=== PATIENT | female | born 1945 | race Caucasian/White ===

== ENCOUNTER → 2022-12-07 | Outpatient (CLI) | payer MEDICARE ==
[2022-12-07 11:19] LABS: African American GFR (CKD) 71 (>60 ml/min/1.73 sqM); Blood Urea Nitrogen 11 mg/dL (7-17); Non-African American GFR(CKD) 62 (>60 ml/min/1.73 sqM)
--- NOTE | 2022-12-07 12:23 | CT ---
EXAMINATION: CT UROGRAM WITHOUT AND WITH IV CONTRAST DATE OF EXAMINATION: 12/07/2022. COMPARISON: None available. INDICATION: Gross hematuria. PROCEDURE: Axial CT of the abdomen and pelvis was performed with sagittal and coronal reformatted i mages without and with contrast enhancement. 100 mL of Isovue-[address] dose lo wering techniques were used, to include: automated exposure control, adjustment for patient size, and /or use of iterative reconstruction. FINDINGS: LOWER CHEST : The visualized lung bases are clear. There are no pleural or pericardial effusions. ABDOMEN: Liver and Biliary system: Normal. Adrenal glands: Normal. Kidneys and ureters: There is a 2.2 cm simple cyst in the inferior pole the right kidney. The kidney s and ureters otherwise appear unremarkable. Spleen: Multiple calcified granulomas are seen within the spleen. Pancreas: Normal. Gallbladder: Normal. Lymph nodes, Peritoneum and mesentery: There is no mesenteric or retroperitoneal lymphadenopathy. Gastrointestinal tract: There are no dilated loops of bowel or free intraperitoneal air. . The appe ndix is not clearly seen. Aorta/IVC: There is severe vascular calcification throughout the abdominal aorta without evidence o f aneurysmal dilation or dissection. Vascular calcification continues into the iliac vessels bilatera lly.. IVC normal. Abdominal wall: Normal. PELVIS: Fluid: There is no free fluid in the pelvis. Lymph Nodes: There is no pelvic or inguinal lymphadenopathy.. Urinary bladder: Normal. BONES: The bones are diffusely demineralized. There are no acute osseous abnormalities.. ADDITIONAL SIGNIFICANT FINDINGS: There is a pelvic floor support device within the vagina.. IMPRESSION: 1. . No renal stones or hydronephrosis. 2. No suspicious renal, urinary tract or bladder lesions identified.. 3. No acute findings otherwise seen.
== END | disposition home or self-care (01) ==
LOC: RADCTMAIN 10:16
PROVIDERS: ATTEND Urology
DX: R31.0 Gross hematuria (principal)
CPT/HCPCS: 82565; 84520; 74178; 36415; 74400; Q9967

== ENCOUNTER 2022-12-18 19:46 | Observation (INO) | payer MEDICARE ==
--- NOTE | 2022-12-18 20:28 | ED ---
Female Urogenital HPI - General Source: family Mode of arrival: wheelchair Limitations: no limitations <Lizette Roque - Last Filed: 12/18/22 20:27> - General Source: RN notes reviewed, old records reviewed Mode of arrival: wheelchair Limitations: no limitations - History of Present Illness MD Complaint: dysuria, pelvic pain -: hour(s) Location: suprapubic Severity: moderate Severity scale (1-10): 7 Quality: sharp Consistency: constant Improves with: none Worsens with: none Patient : No Associated Symptoms: abdominal pain, nausea/vomiting, weakness - Related Data Sexually active: No <Jovanny Burgess - Last Filed: 12/22/22 23:30> - General Chief complaint: Urogenital Stated complaint: abd pain Time Seen by Provider: 12/18/22 20:27 - History of Present Illness Initial comments: Patient is a 77-year-old female who presents to the emergency department for urinary retention. (Lizette Roque) This is a 7-year-old here for evaluation. Patient comes in the ER today for evaluation of urgency or need to ER today. Patient feels like she has to urinate has had significant blood in her urine. Patient symptoms are persistent here in the ER. States she cannot clearly if she has seen urologist in the past with no reason for hematuria secondary to what she states is difficult communication (Jovanny Burgess) - Related Data Home Medications Medication Instructions Recorded Confirmed Denosumab [Prolia] 60 mg SQ Q180D 12/19/22 12/21/22 Previous Rx's Medication Instructions Recorded Cefuroxime [Ceftin] 250 mg PO BID 5 Days #10 tab 12/20/22 Allergies Allergy/AdvReac Type Severity Reaction Status Date / Time latex Allergy Rash/Hives Verified 12/21/22 14:22 nickel Allergy Rash/Hives Verified 12/21/22 14:22 green dye Allergy Rash/Hives Uncoded 12/19/22 07:57 Review of Systems ROS Other: All systems not noted in ROS Statement are negative. <Lizette Roque - Last Filed: 12/18/22 20:27> ROS Other: All systems not noted in ROS Statement are negative. <Jovanny Burgess - Last Filed: 12/22/22 23:30> ROS Statement: Those systems with pertinent positive or pertinent negative responses have been documented in the HPI. Past Medical History Past Medical History: Fibromyalgia, Osteoarthritis (OA) History of Any Multi-Drug Resistant Organisms: None Reported Past Psychological History: No Psychological Hx Reported Smoking Status: Current every day smoker Past Alcohol Use History: None Reported Past Drug Use History: None Reported <MyaLizette - Last Filed: 12/18/22 20:27> General Exam Limitations: no limitations <MyaLizette - Last Filed: 12/18/22 20:27> General appearance: alert, in no apparent distress, anxious Head exam: Present: atraumatic, normocephalic, normal inspection Eye exam: Present: normal appearance, PERRL, EOMI. Absent: scleral icterus, conjunctival injection, periorbital swelling ENT exam: Present: normal exam, mucous membranes moist Neck exam: Present: normal inspection. Absent: tenderness, meningismus, lymphadenopathy Respiratory exam: Present: normal lung sounds bilaterally. Absent: respiratory distress, wheezes, rales, rhonchi, stridor Cardiovascular Exam: Present: regular rate, normal rhythm, normal heart sounds. Absent: systolic murmur, diastolic murmur, rubs, gallop, clicks GI/Abdominal exam: Present: soft, tenderness, guarding, normal bowel sounds. Absent: distended, rebound, rigid Extremities exam: Present: normal inspection, full ROM, normal capillary refill. Absent: tenderness, pedal edema, joint swelling, calf tenderness Back exam: Present: normal inspection Neurological exam: Present: alert, oriented X3, CN II-XII intact Psychiatric exam: Present: normal affect, normal mood Skin exam: Present: warm, dry, intact, normal color. Absent: rash <Jovanny Burgess - Last Filed: 12/22/22 23:30> - General Exam Comments Initial Comments: Visual Physical Exam Vital signs reviewed General: Well-appearing, nontoxic, no acute distress. Head: Normocephalic, atraumatic Eyes: PERRLA, EOMI ENT: Airway patent Chest: Nonlabored breathing Skin: No visual rash, normal skin tone Neuro: Alert and oriented 3 Musculoskeletal: No gross abnormalities (Lizette Roque) Course <Jovanny Burgess - Last Filed: 10/06/23 23:30> Vital Signs 12/18/22 12/18/22 12/19/22 20:04 22:55 02:00 Temperature 98.3 F Pulse Rate 97 86 78 Pulse Rate [ Pulse Oximetery ] Respiratory 18 16 16 Rate Blood Pressure 164/82 116/60 108/68 Blood Pressure [Right Arm] O2 Sat by Pulse 96 96 95 Oximetry 12/19/22 12/19/22 12/19/22 06:23 08:00 14:00 Temperature 97.5 F L 97.6 F Pulse Rate 100 Pulse Rate [ 99 100 Pulse Oximetery ] Respiratory 17 16 16 Rate Blood Pressure 120/61 Blood Pressure 111/64 112/59 [Right Arm] O2 Sat by Pulse 92 L 90 L 97 Oximetry - Reevaluation(s) Reevaluation #1: 12/19/22 00:52 Medical records reviewed (Jovanny Burgess) Reevaluation #2: 12/19/22 00:52 Patient's pain is controlled (Jovanny Burgess) Reevaluation #3: 12/19/22 00:52 Patient informed results questions answered (Jovanny Burgess) Reevaluation #4: 12/19/22 00:52 Was pt. sent in by a medical professional or institution (, PA, MARKETING INFORMATION COORDINATOR, urgent ca re, hospital, or snf...) When possible be specific @ -no Did you speak to anyone other than the patient for history (EMS, parent, family, police, friend...)? What history was obtained from this source @ -no Did you review nursing and triage notes (agree or disagree)? Why? @ -agree Are old charts reviewed (outside hosp., previous admission, EMS record, old EKG, old radiological studies, urgent care reports/EKG's, snf records)? Report findings @ -yes Differential Diagnosis (chest pain, altered mental status, abdominal pain women, abdominal pain men, vaginal bleeding, weakness, fever, dyspnea, syncope, headache, dizziness, GI bleed, back pain, seizure, CVA, palpatations, mental health, musculoskeletal)? @ -prior EKG interpreted by me (3pts min.). @ -no X-rays interpreted by me (1pt min.). @ -no CT interpreted by me (1pt min.). @ -yes U/S interpreted by me (1pt. min.). @ -no What testing was considered but not performed or refused? (CT, X-rays, U/S, labs)? Why? @ -none What meds were considered but not given or refused? Why? @ -none Did you discuss the management of the patient with other professionals (professionals i.e. , PA, MARKETING INFORMATION COORDINATOR, lab, RT, psych nurse, high school social science teacher, hi lift operator, teacher, hospital security officer, case monitor)? Give summary @ -no Was smoking cessation discussed for >3mins.? @ -no Was critical care preformed (if so, how long)? @ -no Were there social determinants of health that impacted care today? How? (Homelessness, low income, unemployed, alcoholism, drug addiction, transportation, low edu. Level, literacy, decrease access to med. care, usp, rehab)? @ -none Was there de-escalation of care discussed even if they declined (Discuss DNR or withdrawal of care, Hospice)? DNR status @ -no What co-morbidities impacted this encounter? (DM, HTN, Smoking, COPD, CAD, Cancer, CVA, ARF, Chemo, Hep., AIDS, mental health diagnosis, sleep apnea, morbid obesity)? @ -none Was patient admitted / discharged? Hospital course, mention meds given and route, prescriptions, significant lab abnormalities, going to OR and other pertinent info. @ - 77 female to the emergency department for evaluation of abdominal pain severe. Patient initially thought to have significant urinary retention although here in the ER she has a Barton catheter placed with no significant output. This catheter will be left in the monitor patient's urinary output and sent out. Patient's pain is improved but remains with significant significant hematuria will treat for hemorrhagic cystitis admitted for urology to see Admitted Undiagnosed new problem with uncertain prognosis? @ -no Drug Therapy requiring intensive monitoring for toxicity (Heparin, Nitro, Insu eliecer, Cardizem)? @ -no Were any procedures done? @ -no Diagnosis/symptom? @ -Urinary retention and hematuria Acute, or Chronic, or Acute on Chronic? @ -Acute Uncomplicated (without systemic symptoms) or Complicated (systemic symptoms)? @ -Complicated Side effects of treatment? @ -no Exacerbation, Progression, or Severe Exacerbation? @ -exacerbation Poses a threat to life or bodily function? How? (Chest pain, [place], [place], pneumonia, PE, COPD, DKA, ARF, appy, cholecystitis, CVA, Diverticulitis, Homicidal, Suicidal, threat to staff... and all critical care pts) @ -no (Jovanny Burgess) Reevaluation #5: 12/19/22 00:52 Differential Abdominal Pain Women: Appendicitis, Cholecystitis, diverticulosis, ischemic bowel, pancreatitis, hep atitis, UTI, gastroenteritis, AAA, incarcerated hernia, bowel obstruction, constipation, inflammatory bowel, hepatitis, peptic ulcer disease, splenic infarction, perforated viscus, vulvitis, ovarian torsion, PID, kidney stone, placenta abruption, this is not meant to be an all-inclusive list (Jovanny Burgess) - Consultations Consultation #1: (Eamon Schmid who agrees to admit the patient (Jovanny Burgess) Consultation #2: Spoke with Dr. Justice who also agrees to admit the patient (Jovanny Burgess) Medical Decision Making <Lizette Roque - Last Filed: 12/18/22 20:27> - Lab Data Result diagrams: 12/20/22 05:21 12/20/22 05:21 - Radiology Data Radiology results: pending (CT of abdomen and pelvis) <Jovanny Burgess - Last Filed: 12/22/22 23:30> - Medical Decision Making I performed the QuickNote portion of this chart - Lizette Roque PA-C (Lizette oRque) 77 female to the emergency department for evaluation of abdominal pain severe. Patient initially thought to have significant urinary retention although here in the ER she has a Barton catheter placed with no significant output. This catheter will be left in the monitor patient's urinary output and sent out. Patient's pain is improved but remains with significant significant hematuria will treat for hemorrhagic cystitis admitted for urology to see (Jovanny Burgess) - Lab Data Lab Results 12/18/22 12/18/22 12/18/22 Range/Units 21:00 21:00 21:00 WBC 9.3 (3.8-10.6) k/uL RBC 2.71 L (3.80-5.40) m/uL Hgb 8.4 L (11.4-16.0) gm/dL Hct 26.7 L (34.0-46.0) % MCV 98.5 (80.0-100.0) fL MCH 31.1 (25.0-35.0) pg MCHC 31.5 (31.0-37.0) g/dL RDW 14.5 (11.5-15.5) % Plt Count 338 (150-450) k/uL MPV 8.5 Neutrophils % 78 % Lymphocytes % 13 % Monocytes % 6 % Eosinophils % 1 % Basophils % 0 % Neutrophils # 7.3 (1.3-7.7) k/uL Lymphocytes # 1.2 (1.0-4.8) k/uL Monocytes # 0.6 (0-1.0) k/uL Eosinophils # 0.1 (0-0.7) k/uL Basophils # 0.0 (0-0.2) k/uL Hypochromasia Moderate Sodium 134 L (137-145) mmol/L Potassium 3.9 (3.5-5.1) mmol/L Chloride 99 (98-107) mmol/L Carbon Dioxide 24 (22-30) mmol/L Anion Gap 11 mmol/L BUN 17 (7-17) mg/dL Creatinine 1.13 H (0.52-1.04) mg/dL Est GFR (CKD-EPI)AfAm 55 (>60 ml/min/1.73 sqM) Est GFR (CKD-EPI)NonAf 48 (>60 ml/min/1.73 sqM) Glucose 109 H (74-99) mg/dL Plasma Lactic Acid Elvin (0.7-2.0) mmol/L Calcium 9.1 (8.4-10.2) mg/dL Total Bilirubin 0.4 (0.2-1.3) mg/dL AST 29 (14-36) U/L ALT 17 (4-34) U/L Alkaline Phosphatase 77 (38-126) U/L Total Protein 7.2 (6.3-8.2) g/dL Albumin 3.8 (3.5-5.0) g/dL Amylase (30-110) U/L Lipase (23-300) U/L Urine Color Light Red Urine Appearance Cloudy H (Clear) Urine pH 5.0 (5.0-8.0) Ur Specific [place] 1.019 (1.001-1.035) Urine Protein 1+ H (Negative) Urine Glucose (UA) Negative (Negative) Urine Ketones Negative (Negative) Urine Blood Large H (Negative) Urine Nitrite Negative (Negative) Urine Bilirubin Negative (Negative) Urine Urobilinogen <2.0 (<2.0) mg/dL Ur Leukocyte Esterase Small H (Negative) Urine RBC >182 H (0-5) /hpf Urine WBC 17 H (0-5) /hpf Ur Squamous Epith Cells 1 (0-4) /hpf Urine Bacteria Rare H (None) /hpf Urine Mucus (None) /hpf Urine Yeast (Budding) Many H (None) /hpf 12/18/22 12/18/22 12/18/22 Range/Units 21:10 21:53 22:47 WBC (3.8-10.6) k/uL RBC (3.80-5.40) m/uL Hgb (11.4-16.0) gm/dL Hct (34.0-46.0) % MCV (80.0-100.0) fL MCH (25.0-35.0) pg MCHC (31.0-37.0) g/dL RDW (11.5-15.5) % Plt Count (150-450) k/uL MPV Neutrophils % % Lymphocytes % % Monocytes % % Eosinophils % % Basophils % % Neutrophils # (1.3-7.7) k/uL Lymphocytes # (1.0-4.8) k/uL Monocytes # (0-1.0) k/uL Eosinophils # (0-0.7) k/uL Basophils # (0-0.2) k/uL Hypochromasia Sodium 133 L (137-145) mmol/L Potassium 4.4 (3.5-5.1) mmol/L Chloride 100 (98-107) mmol/L Carbon Dioxide 25 (22-30) mmol/L Anion Gap 8 mmol/L BUN 19 H (7-17) mg/dL Creatinine 1.14 H (0.52-1.04) mg/dL Est GFR (CKD-EPI)AfAm 55 (>60 ml/min/1.73 sqM) Est GFR (CKD-EPI)NonAf 47 (>60 ml/min/1.73 sqM) Glucose 109 H (74-99) mg/dL Plasma Lactic Acid Elvin 0.9 (0.7-2.0) mmol/L Calcium 8.8 (8.4-10.2) mg/dL Total Bilirubin 0.4 (0.2-1.3) mg/dL AST 29 (14-36) U/L ALT 16 (4-34) U/L Alkaline Phosphatase 68 (38-126) U/L Total Protein 6.6 (6.3-8.2) g/dL Albumin 3.6 (3.5-5.0) g/dL Amylase 46 (30-110) U/L Lipase 111 (23-300) U/L Urine Color Red Urine Appearance Cloudy H (Clear) Urine pH 5.5 (5.0-8.0) Ur Specific [place] 1.020 (1.001-1.035) Urine Protein 1+ H (Negative) Urine Glucose (UA) Negative (Negative) Urine Ketones Negative (Negative) Urine Blood Large H (Negative) Urine Nitrite Negative (Negative) Urine Bilirubin Negative (Negative) Urine Urobilinogen <2.0 (<2.0) mg/dL Ur Leukocyte Esterase Small H (Negative) Urine RBC >182 H (0-5) /hpf Urine WBC 7 H (0-5) /hpf Ur Squamous Epith Cells 11 H (0-4) /hpf Urine Bacteria Rare H (None) /hpf Urine Mucus Occasional H (None) /hpf Urine Yeast (Budding) Many H (None) /hpf Disposition <Lizette Roque - Last Filed: 12/18/22 20:27> Is patient prescribed a controlled substance at d/c from ED?: No Time of Disposition: 00:50 <Jovanny Burgess - Last Filed: 12/22/22 23:30> Clinical Impression: Pelvic pain, Hematuria, Urinary tract infection Disposition: ADMITTED IP TO THIS HOSP Condition: Stable
[2022-12-18 21:26] LABS: ALT 17 U/L (4-34); AST 29 U/L (14-36); African American GFR (CKD) 55 (>60 ml/min/1.73 sqM); Albumin 3.8 g/dL (3.5-5.0); Alkaline Phosphatase 77 U/L (38-126); Anion Gap 11 mmol/L; Blood Urea Nitrogen 17 mg/dL (7-17); Calcium 9.1 mg/dL (8.4-10.2); Carbon Dioxide 24 mmol/L (22-30); Chloride 99 mmol/L (98-107); Glucose 109 mg/dL (74-99); Non-African American GFR(CKD) 48 (>60 ml/min/1.73 sqM); Potassium 3.9 mmol/L (3.5-5.1); Sodium 134 mmol/L (137-145); Total Bilirubin 0.4 mg/dL (0.2-1.3); Total Protein 7.2 g/dL (6.3-8.2)
[2022-12-18 21:39] LABS: Appearance,Urine Cloudy (Clear); Bacteria,Urine Rare /hpf; Bilirubin,Urine Negative (Negative); Blood,Urine Large (Negative); Budding Yeast,Urine Many /hpf; Color,Urine Light Red; Glucose,Urine (UA) Negative (Negative); Ketones,Urine Negative (Negative); Leukocyte Esterase,Urine Small (Negative); Nitrite,Urine Negative (Negative); Protein,Urine 1+ (Negative); RBC,Urine >182 /hpf (0-5); Specific Gravity,Urine 1.019 (1.001-1.035); Squamous Epithelial Cell,Urine 1 /hpf (0-4); Urobilinogen,Urine <2.0 mg/dL (<2.0); WBC,Urine 17 /hpf (0-5)
[2022-12-18] MEDS ORDERED: SODIUM CHLORIDE 0.9% 1,000 ML IV STA (21:53)
[2022-12-18] MEDS ORDERED: ONDANSETRON 4 MG/2 ML VIAL IVP STA (21:53)
[2022-12-18] MEDS ORDERED: HYDROmorphone 0.5 MG/0.5 ML SYRINGE IVP STA (21:54)
[2022-12-18 22:00] LABS: Basophils % (A) 0 %; Eosinophils # (A) 0.1 k/uL (0-0.7); Eosinophils % (A) 1 %; HCT 26.7 % (34.0-46.0); HGB 8.4 gm/dL (11.4-16.0); Hypochromasia Moderate; Lymphocytes # (A) 1.2 k/uL (1.0-4.8); Lymphocytes % (A) 13 %; MCH 31.1 pg (25.0-35.0); MCHC 31.5 g/dL (31.0-37.0); MCV 98.5 fL (80.0-100.0); Mean Platelet Volume 8.5; Monocytes # (A) 0.6 k/uL (0-1.0); Monocytes % (A) 6 %; Neutrophils # (A) 7.3 k/uL (1.3-7.7); Neutrophils % (A) 78 %; Platelet Count 338 k/uL (150-450); RBC 2.71 m/uL (3.80-5.40); RDW 14.5 % (11.5-15.5); WBC 9.3 k/uL (3.8-10.6)
[2022-12-18 22:30] LABS: ALT 16 U/L (4-34); AST 29 U/L (14-36); African American GFR (CKD) 55 (>60 ml/min/1.73 sqM); Albumin 3.6 g/dL (3.5-5.0); Alkaline Phosphatase 68 U/L (38-126); Amylase 46 U/L (30-110); Anion Gap 8 mmol/L; Blood Urea Nitrogen 19 mg/dL (7-17); Calcium 8.8 mg/dL (8.4-10.2); Carbon Dioxide 25 mmol/L (22-30); Chloride 100 mmol/L (98-107); Glucose 109 mg/dL (74-99); Lipase 111 U/L (23-300); Non-African American GFR(CKD) 47 (>60 ml/min/1.73 sqM); Potassium 4.4 mmol/L (3.5-5.1); Sodium 133 mmol/L (137-145); Total Bilirubin 0.4 mg/dL (0.2-1.3); Total Protein 6.6 g/dL (6.3-8.2)
[2022-12-18 23:48] LABS: Appearance,Urine Cloudy (Clear); Bacteria,Urine Rare /hpf; Bilirubin,Urine Negative (Negative); Blood,Urine Large (Negative); Budding Yeast,Urine Many /hpf; Color,Urine Red; Glucose,Urine (UA) Negative (Negative); Ketones,Urine Negative (Negative); Leukocyte Esterase,Urine Small (Negative); Mucus,Urine Occasional /hpf; Nitrite,Urine Negative (Negative); PH, Urine 5.5 (5.0-8.0); Protein,Urine 1+ (Negative); RBC,Urine >182 /hpf (0-5); Squamous Epithelial Cell,Urine 11 /hpf (0-4); Urobilinogen,Urine <2.0 mg/dL (<2.0); WBC,Urine 7 /hpf (0-5)
[2022-12-19] MEDS ORDERED: NALOXONE 0.4 MG/ML 1 ML VIAL IV PRN (00:48)
[2022-12-19] MEDS ORDERED: ONDANSETRON 4 MG/2 ML VIAL IVP PRN (00:48)
[2022-12-19] MEDS ORDERED: SODIUM CHLORIDE 0.9% 1,000 ML IV STA ×2 (00:50)
--- NOTE | 2022-12-19 01:03 | CT ---
EXAM: CT Abdomen and Pelvis With Intravenous Contrast CLINICAL HISTORY: CT Reason: abdominal pain TECHNIQUE: Axial computed tomography images of the abdomen and pelvis with intravenous contrast. CTDI is 9.8 mGy and DLP is 277.80 mGy-cm. This CT exam was performed using one or more of the following dose reduction techniques: automated exposure control, adjustment of the mA and/or kV according to patient size, and/or use of iterative reconstruction technique. COMPARISON: December 07, 2022 FINDINGS: Lung bases: Unremarkable. No mass. No consolidation. ABDOMEN: Liver: Unremarkable. No mass. Gallbladder and bile ducts: Unremarkable. No calcified stones. No ductal dilation. Pancreas: Unremarkable. No mass. No ductal dilation. Spleen: Unremarkable. No splenomegaly. Adrenals: Unremarkable. No mass. Kidneys and ureters: Mild left hydronephrosis. No ureterolithiasis is seen. Stomach and bowel: Bowel loops are nondilated. No acute inflammatory changes are seen involving the bowel. No mucosal thickening. PELVIS: Appendix: No findings to suggest acute appendicitis. Bladder: The urinary bladder is decompressed by a Barton catheter but otherwise unremarkable. Reproductive: There is a pessary in the vagina. ABDOMEN and PELVIS: Intraperitoneal space: Unremarkable. No free air. No significant fluid collection. Bones/joints: Diffuse osteopenia with compression fractures involve visible thoracic and lumbar spinal levels which appear chronic. No acute fracture or subluxation is seen. Soft tissues: Unremarkable. Vasculature: The abdominal aorta is severely calcified. The infrarenal aorta is ectatic measuring 2.9 cm. No abdominal aortic aneurysm. Lymph nodes: Unremarkable. No enlarged lymph nodes. IMPRESSION: 1. Mild left hydronephrosis. No ureterolithiasis is seen. This is slightly greater than previous. Consider distal ureteral stricture or compression of the distal ureter at the ureterovesicular junction by the pessary. 2. Bowel loops are nondilated. No acute inflammatory changes are seen involving the bowel.
[2022-12-19] MEDS: MORPHINE SULFATE 4 MG/ML SYRINGE IV PRN ×2 (06:21→18:33)
--- NOTE | 2022-12-19 09:27 | P.GSCN ---
History of Present Illness Consult date: 12/19/22 History of present illness: 77 yo female admitted via the er because of pelvic pain, hematuria. SHe has been seen by Dr preston recently. SHe had a ct urogram 12/07 for hematuria that was read as normal but Dr preston thought there was a filling defect in the distal left ureter. He is planning on a left ureteroscopy with biopsies.. When she came in last nite it was thought she might be in retention but she wasn't. She had a ct scan without contrast that showed mild hydronephrosis on the left. No definite stones were seen. Her urine showed may rbc, few wbc and rare bacteria. She feels better this am. Review of Systems All systems: negative - Constitutional Denies fever, Denies weight loss - EENT Eyes: denies blurred vision Ears, nose, mouth and throat: Denies dysphagia - Cardiovascular Denies chest pain, Denies shortness of breath - Respiratory Denies cough, Denies 7 - Gastrointestinal Reports as per HPI - Genitourinary Genitourinary: Denies dysuria, Denies hematuria - Integumentary Denies rash, Denies unusual bruising - Neurological Denies headaches, Denies syncope - Hematologic/Lymphatic Denies easy bleeding, Denies easy bruising Past Medical History Past Medical History: Fibromyalgia, Osteoarthritis (OA) History of Any Multi-Drug Resistant Organisms: None Reported Past Psychological History: No Psychological Hx Reported Smoking Status: Current every day smoker Past Alcohol Use History: None Reported Past Drug Use History: None Reported Medications and Allergies Home Medications Medication Instructions Recorded Confirmed Type Denosumab [Prolia] 60 mg SQ Q180D 12/19/22 12/19/22 History Allergies Allergy/AdvReac Type Severity Reaction Status Date / Time latex Allergy Rash/Hives Verified 12/19/22 07:57 nickel Allergy Rash/Hives Verified 12/19/22 07:57 green dye Allergy Rash/Hives Uncoded 12/19/22 07:57 Surgical - Exam Vital Signs Temp Pulse Resp BP Pulse Ox 98.3 F 97 18 164/82 96 12/18/22 20:04 12/18/22 20:04 12/18/22 20:04 12/18/22 20:04 12/18/22 20:04 - General well developed, well nourished, no distress - Eyes normal ocular movement, no icteric - ENT no hearing loss, no congestion - Neck no masses, trachea midline - Respiratory normal respiratory effort, clear to auscultation - Abdomen Abdomen: soft, non tender, no guarding, no rigid, no rebound - Integumentary no rash, no abnormal pigmentation - Neurologic no disoriented, no combative - Psychiatric oriented to time, oriented to person, oriented to place, speech is normal, mem ory intact Results - Labs 12/18/22 21:00 12/18/22 21:53 Abnormal Lab Results - Last 24 Hours (Table) 12/18/22 12/18/22 12/18/22 Range/Units 21:00 21:00 21:00 RBC 2.71 L (3.80-5.40) m/uL Hgb 8.4 L (11.4-16.0) gm/dL Hct 26.7 L (34.0-46.0) % Sodium 134 L (137-145) mmol/L BUN (7-17) mg/dL Creatinine 1.13 H (0.52-1.04) mg/dL Glucose 109 H (74-99) mg/dL Urine Appearance Cloudy H (Clear) Urine Protein 1+ H (Negative) Urine Blood Large H (Negative) Ur Leukocyte Esterase Small H (Negative) Urine RBC >182 H (0-5) /hpf Urine WBC 17 H (0-5) /hpf Ur Squamous Epith Cells (0-4) /hpf Urine Bacteria Rare H (None) /hpf Urine Mucus (None) /hpf Urine Yeast (Budding) Many H (None) /hpf 12/18/22 12/18/22 Range/Units 21:53 22:47 RBC (3.80-5.40) m/uL Hgb (11.4-16.0) gm/dL Hct (34.0-46.0) % Sodium 133 L (137-145) mmol/L BUN 19 H (7-17) mg/dL Creatinine 1.14 H (0.52-1.04) mg/dL Glucose 109 H (74-99) mg/dL Urine Appearance Cloudy H (Clear) Urine Protein 1+ H (Negative) Urine Blood Large H (Negative) Ur Leukocyte Esterase Small H (Negative) Urine RBC >182 H (0-5) /hpf Urine WBC 7 H (0-5) /hpf Ur Squamous Epith Cells 11 H (0-4) /hpf Urine Bacteria Rare H (None) /hpf Urine Mucus Occasional H (None) /hpf Urine Yeast (Budding) Many H (None) /hpf Diabetes panel 12/18/22 12/18/22 Range/Units 21:00 21:53 Sodium 134 L 133 L (137-145) mmol/L Potassium 3.9 4.4 (3.5-5.1) mmol/L Chloride 99 100 (98-107) mmol/L Carbon Dioxide 24 25 (22-30) mmol/L BUN 17 19 H (7-17) mg/dL Creatinine 1.13 H 1.14 H (0.52-1.04) mg/dL Glucose 109 H 109 H (74-99) mg/dL Calcium 9.1 8.8 (8.4-10.2) mg/dL AST 29 29 (14-36) U/L ALT 17 16 (4-34) U/L Alkaline Phosphatase 77 68 (38-126) U/L Total Protein 7.2 6.6 (6.3-8.2) g/dL Albumin 3.8 3.6 (3.5-5.0) g/dL Calcium panel 12/18/22 12/18/22 Range/Units 21:00 21:53 Calcium 9.1 8.8 (8.4-10.2) mg/dL Albumin 3.8 3.6 (3.5-5.0) g/dL Pituitary panel 12/18/22 12/18/22 Range/Units 21:00 21:53 Sodium 134 L 133 L (137-145) mmol/L Potassium 3.9 4.4 (3.5-5.1) mmol/L Chloride 99 100 (98-107) mmol/L Carbon Dioxide 24 25 (22-30) mmol/L BUN 17 19 H (7-17) mg/dL Creatinine 1.13 H 1.14 H (0.52-1.04) mg/dL Glucose 109 H 109 H (74-99) mg/dL Calcium 9.1 8.8 (8.4-10.2) mg/dL Adrenal panel 12/18/22 12/18/22 Range/Units 21:00 21:53 Sodium 134 L 133 L (137-145) mmol/L Potassium 3.9 4.4 (3.5-5.1) mmol/L Chloride 99 100 (98-107) mmol/L Carbon Dioxide 24 25 (22-30) mmol/L BUN 17 19 H (7-17) mg/dL Creatinine 1.13 H 1.14 H (0.52-1.04) mg/dL Glucose 109 H 109 H (74-99) mg/dL Calcium 9.1 8.8 (8.4-10.2) mg/dL Total Bilirubin 0.4 0.4 (0.2-1.3) mg/dL AST 29 29 (14-36) U/L ALT 17 16 (4-34) U/L Alkaline Phosphatase 77 68 (38-126) U/L Total Protein 7.2 6.6 (6.3-8.2) g/dL Albumin 3.8 3.6 (3.5-5.0) g/dL - Imaging CT scan - abdomen: report reviewed, image reviewed CT scan - pelvis: report reviewed, image reviewed Assessment and Plan Assessment: Impression: Persistent gross hematuria with pelvic pain. Abnormal ct scan left ureter Plan: From a urological standpoint the patient may go home. Dr preston will contact her for the above mentioned surgical evaluation of the abnormal left ureter and hematuria.
--- NOTE | 2022-12-19 09:28 | P.HPIM ---
History of Present Illness H&P Date: 12/19/22 Chief Complaint: Dysuria This is a 77-year-old female who presented to the emergency room with complaints of urgency and dysuria and pelvic pain. She reports she has been having difficulty urinating and significant blood in her urine. She has a past medical history of fibromyalgia and arthritis. She is seen this morning laying on stretcher in emergency room. Barton catheter in place, dark urine present. UA showed a small amount of leukocytes. Urology has been consulted. Review of Systems Constitutional: Denies chills, Denies fever Cardiovascular: Denies chest pain, Denies dyspnea on exertion Gastrointestinal: Reports abdominal pain, Denies nausea, Denies vomiting Genitourinary: Reports dysuria, Reports pelvic pain, Reports urgency Musculoskeletal: Denies arm numbness/tingling, Denies leg numbness/tingling Neurological: Denies headaches, Denies weakness Past Medical History Past Medical History: Fibromyalgia, Osteoarthritis (OA) History of Any Multi-Drug Resistant Organisms: None Reported Past Psychological History: No Psychological Hx Reported Smoking Status: Current every day smoker Past Alcohol Use History: None Reported Past Drug Use History: None Reported Medications and Allergies Home Medications Medication Instructions Recorded Confirmed Type Denosumab [Prolia] 60 mg SQ Q180D 12/19/22 12/19/22 History Allergies Allergy/AdvReac Type Severity Reaction Status Date / Time latex Allergy Rash/Hives Verified 12/19/22 07:57 nickel Allergy Rash/Hives Verified 12/19/22 07:57 green dye Allergy Rash/Hives Uncoded 12/19/22 07:57 Physical Exam Vitals: Vital Signs Temp Pulse Resp BP Pulse Ox 12/19/22 06:23 100 17 120/61 92 L 12/19/22 02:00 78 16 108/68 95 12/18/22 22:55 86 16 116/60 96 12/18/22 20:04 98.3 F 97 18 164/82 96 Intake and Output 12/18/22 12/19/22 12/19/22 22:59 06:59 14:59 Other: Weight 42.184 kg - Constitutional General appearance: cooperative, no acute distress - EENT Eyes: PERRLA - Neck Neck: no lymphadenopathy, normal ROM, no rigidity - Respiratory Respiratory: bilateral: CTA - Cardiovascular Rhythm: regular Heart sounds: normal: S1, S2 - Gastrointestinal General gastrointestinal: soft, no tenderness - Integumentary Integumentary: normal, normal turgor - Psychiatric Psychiatric: A&O x's 3, appropriate affect, intact judgment & insight Results CBC & Chem 7: 12/18/22 21:00 12/18/22 21:53 Labs: Abnormal Lab Results - Last 24 Hours (Table) 12/18/22 12/18/22 12/18/22 Range/Units 21:00 21:00 21:00 RBC 2.71 L (3.80-5.40) m/uL Hgb 8.4 L (11.4-16.0) gm/dL Hct 26.7 L (34.0-46.0) % Sodium 134 L (137-145) mmol/L BUN (7-17) mg/dL Creatinine 1.13 H (0.52-1.04) mg/dL Glucose 109 H (74-99) mg/dL Urine Appearance Cloudy H (Clear) Urine Protein 1+ H (Negative) Urine Blood Large H (Negative) Ur Leukocyte Esterase Small H (Negative) Urine RBC >182 H (0-5) /hpf Urine WBC 17 H (0-5) /hpf Ur Squamous Epith Cells (0-4) /hpf Urine Bacteria Rare H (None) /hpf Urine Mucus (None) /hpf Urine Yeast (Budding) Many H (None) /hpf 12/18/22 12/18/22 Range/Units 21:53 22:47 RBC (3.80-5.40) m/uL Hgb (11.4-16.0) gm/dL Hct (34.0-46.0) % Sodium 133 L (137-145) mmol/L BUN 19 H (7-17) mg/dL Creatinine 1.14 H (0.52-1.04) mg/dL Glucose 109 H (74-99) mg/dL Urine Appearance Cloudy H (Clear) Urine Protein 1+ H (Negative) Urine Blood Large H (Negative) Ur Leukocyte Esterase Small H (Negative) Urine RBC >182 H (0-5) /hpf Urine WBC 7 H (0-5) /hpf Ur Squamous Epith Cells 11 H (0-4) /hpf Urine Bacteria Rare H (None) /hpf Urine Mucus Occasional H (None) /hpf Urine Yeast (Budding) Many H (None) /hpf Assessment and Plan (1) Hematuria Current Visit: Yes Status: Acute Code(s): R31.9 - HEMATURIA, UNSPECIFIED SNOMED Code(s): 66310364 (2) Pelvic pain Current Visit: Yes Status: Acute Code(s): R10.2 - PELVIC AND PERINEAL PAIN SNOMED Code(s): 21191234 (3) Urinary tract infection Current Visit: Yes Status: Acute Code(s): N39.0 - URINARY TRACT INFECTION, SITE NOT SPECIFIED SNOMED Code(s): 01789129 Plan: Start 1 g of Rocephin daily Continue hydration with IV fluids. Continue Barton catheter today Check CBC and CMP in the morning Appreciate urology input Patient seen and evaluated by nurse practitioner, physician in agreement with plan
[2022-12-20] MEDS: MORPHINE SULFATE 4 MG/ML SYRINGE IV PRN (00:22)
[2022-12-20 07:49] VITALS: BP 167/82; PULSE 114; RESP 18; TEMP 98.5
--- NOTE | 2022-12-20 08:42 | P.DS ---
Providers Date of admission: 12/19/22 00:50 Attending physician: Jermaine Schmid Consults: 12/19/22 00:48 Consult Physician Routine Consulting Provider: Khanh Johnson Consult Reason/Comments: known Do you want consulting provider notified?: Yes Primary care physician: Jermaine Schmid Hospital Course: The patient was admitted for urinary retention. Urology was consulted after seem computed tomography scan and was cleared for discharge. The patient was kept overnight related to hydration status. The patient had better urinary output and the Barton will be is continued and she'll follow up with urology. Sh e'll follow-up with me in about a week as necessary. UTIs also noted. She is placed on Ceftin for discharge. Patient is tolerating diet minimal pain and will be discharged in stable condition. Patient Condition at Discharge: Stable Plan - Discharge Summary New Discharge Prescriptions: New Cefuroxime [Ceftin] 250 mg PO BID 5 Days #10 tab Continue Denosumab [Prolia] 60 mg SQ Q180D Discharge Medication List Denosumab [Prolia] 60 mg SQ Q180D 12/19/22 [History] Cefuroxime [Ceftin] 250 mg PO BID 5 Days #10 tab 12/20/22 [Rx] Follow up Appointment(s)/Referral(s): Max Ribera MD [STAFF PHYSICIAN] - 1 Week Jermaine Schmid MD [Primary Care Provider] - 3 Days Discharge Disposition: HOME SELF-CARE
[2022-12-20 08:52] LABS: Basophils # (A) 0.03 X 10*3/uL (0.00-0.10); Basophils % (A) 0.2 %; Eosinophils # (A) 0.01 X 10*3/uL (0.04-0.35); Eosinophils % (A) 0.1 %; HCT 24.4 % (37.2-46.3); HGB 7.3 d/dL (12.0-15.0); Lymphocytes # (A) 1.25 X 10*3/uL (0.90-5.00); Lymphocytes % (A) 10.3 %; MCH 30.5 pg (27.0-32.0); MCHC 29.9 d/dL (32.0-37.0); MCV 102.1 FL (80.0-97.0); Mean Platelet Volume 9.1 FL (9.5-12.2); Monocytes # (A) 0.89 X 10*3/uL (0.20-1.00); Monocytes % (A) 7.3 %; NRBC Per 100 WBC 0 X 10*3/uL (0.00-0.01); Neutrophils # (A) 9.87 X 10*3/uL (1.80-7.70); Neutrophils % (A) 81.4 %; Platelet Count 253 X 10*3/uL (140-440); RBC 2.39 X 10*6/uL (4.10-5.20); WBC 12.14 X 10*3/uL (4.50-10.00)
[2022-12-20 09:00] LABS: ALT 11 U/L (8-44); AST 16 U/L (13-35); Albumin 3.1 d/dL (3.8-4.9); Albumin/Globulin Ratio 1.35 Ratio (1.60-3.17); Alkaline Phosphatase 58 U/L (41-126); BUN/Creat Ratio 10.47 Ratio (12.00-20.00); Blood Urea Nitrogen 15.7 mg/dL (9.0-27.0); Calcium 8.8 mg/dL (8.7-10.3); Chloride 101 mmol/L (96-109); Globulin 2.3 d/dL (1.6-3.3); Glucose 84 mg/dL (70-110); Phosphorus 4.4 mg/dL (2.4-5.1); Potassium 4.6 mmol/L (3.5-5.5); Sodium 135 mmol/L (135-145); Total Bilirubin <0.2 mg/dL (0.3-1.2); Total Protein 5.4 d/dL (6.2-8.2)
--- NOTE | 2022-12-20 10:54 | P.PN ---
Progress Note - Text Progress Note Date: 12/20/22 The patient is in the hospital abdominal pain and hematuria. She has some mild left-sided hydronephrosis. She has been seen by . Case was discussed with him yesterday. He plans on doing left ureteroscopy and biopsies as an outpatient in the near future to clarify cause of her hematuria
[2022-12-20 13:10] VITALS: BMI 18.1
== END 2022-12-20 13:35 | disposition home or self-care (01) ==
LOC: EC 19:46 → 4SSUR 12-19 00:50 → 5NMEDONC 12-19 00:59
PROVIDERS: ADMIT Family Medicine; ATTEND Family Medicine
DX: N13.6 Pyonephrosis (principal); R33.9 Retention of urine, unspecified; M79.7 Fibromyalgia; M19.90 Unspecified osteoarthritis, unspecified site; F17.200 Nicotine dependence, unspecified, uncomplicated; Z79.899 Other long term (current) drug therapy; Z91.040 Latex allergy status; Z91.048 Other nonmedicinal substance allergy status
CPT/HCPCS: 96376 ×2; 96361 ×2; 96366 ×2; 96365; 96375 ×2; 99285; 36415; 80053 ×2; 82150; 83605; 83690; 83735; 84100; 85025 ×2; 81001; 87086; 74177; G0378 ×2; J2270 ×2; J2405; J0696 ×3; J1170; Q9967

== ENCOUNTER 2022-12-26 07:48 | Day surgery (SDC) | payer MEDICARE ==
[~2022-12-26 07:48] MED LIST: DEXAMETHASONE SOD PHOSPHATE 4 MG/ML 1 ML VIAL IV ONE; HYDROmorphone 0.5 MG/0.5 ML SYRINGE IVP PRN; LACTATED RINGERS 1,000 ML IV SCH; LIDOCAINE 1% (10MG/ML) FOR IV START INTRADERMA PRN; MIDAZOLAM 2 MG/2 ML VIAL IV PRN; ONDANSETRON 4 MG/2 ML VIAL IVP ONE
--- NOTE | 2022-12-26 08:00 | P.HPIHPCON ---
History of Present Illness H&P Date: 12/26/22 Chief Complaint: Gross hematuria, left ureteral mass This is a 77-year-old female with history of gross hematuria, underwent a cystoscopy that showed no abnormality within the bladder. Upon review of a CT urogram there was a questionable filling defect along the course of the distal ureter. Discussed with her given this finding I recommend proceeding with a diagnostic left ureteroscopy with possible biopsy and stent insertion. Discussed we'll also do a right retrograde pyelogram at the same setting to completely evaluate the right collecting system if the left retrograde is normal. Aware of the risk which includes but not limited to bleeding, infection, injury to the ureter Consent for Procedure: I have explained the operation/procedure to the patient, including the risks, benefits, side effects, alternative therapies (including not receiving the proposed treatment or service), the likelihood of the patient achieving his/her goals, and potential recuperation problems for the procedure/sedation/analgesia, as well as any blood products, if indicated. I also explained to the patient the risks, benefits and side effects of the alternatives, as well as the risks related to not receiving the proposed procedure, care, treatment, or services. Past Medical History Past Medical History: Fibromyalgia, Osteoarthritis (OA) Additional Past Medical History / Comment(s): "bloody urine" History of Any Multi-Drug Resistant Organisms: None Reported Additional Past Surgical History / Comment(s): hammer toe, ganglion cyst Past Anesthesia/Blood Transfusion Reactions: Postoperative Nausea & Vomiting (PONV) Smoking Status: Current every day smoker - Past Family History Father Family Medical History: Cancer Additional Family Medical History / Comment(s): lung Medications and Allergies Home Medications Medication Instructions Recorded Confirmed Type Denosumab [Prolia] 60 mg SQ Q180D 12/19/22 12/25/22 History Multivitamins, Thera [Multivitamin] 1 tab PO DAILY #30 tablet 12/23/22 12/25/22 Rx cefUROXime axetiL [Ceftin] 500 mg PO BID 3 Days #6 tab 12/23/22 12/25/22 Rx Allergies Allergy/AdvReac Type Severity Reaction Status Date / Time latex Allergy Rash/Hives Verified 12/25/22 10:09 nickel Allergy Rash/Hives Verified 12/25/22 10:09 green dye Allergy Rash/Hives Uncoded 12/25/22 10:09 Surgical - Exam - General no distress, no pain - Eyes normal ocular movement, no pale - ENT normal nares, normal mucosa - Respiratory normal expansion, normal respiratory effort - Abdomen Abdomen: soft, non tender Assessment and Plan Assessment: OR for cystoscopy, left ureteroscopy, possible biopsy and stent insertion
[2022-12-26] MEDS ORDERED: ROCURONIUM 10 MG/ML (5 ML VIAL) IV ONE (10:08)
[2022-12-26] MEDS ORDERED: NEOSTIGMINE 1 MG/ML 10 ML VIAL ONE (10:08)
[2022-12-26] MEDS ORDERED: GLYCOPYRROLATE 0.2 MG/ML 2 ML VIAL ONE (10:08)
[2022-12-26] MEDS ORDERED: SUCCINYLCHOLINE CHLORIDE 200 MG/10 ML VIAL IV ONE (10:08)
[2022-12-26] MEDS ORDERED: LIDOCAINE 1% INJ 10MG/ML (20 ML MDV) ONE (10:08)
[2022-12-26] MEDS ORDERED: PHENYLEPHRINE-0.9% NACL SYG 1,000 MCG/10 ML SYRINGE ONE (10:08)
[2022-12-26] MEDS ORDERED: PROPOFOL 10 MG/ML 20 ML VIAL IV ONE (10:08)
[2022-12-26] MEDS ORDERED: fentaNYL (PF) 50 MCG/ML 2 ML AMP ONE (10:08)
[2022-12-26] MEDS ORDERED: IOPAMIDOL-370 50ML BTL MISCELLANE ONE ×2 (10:36)
--- NOTE | 2022-12-26 11:19 | FL ---
Intraoperative/procedural fluoroscopic services were provided for bilateral retrograde pyelogram. Rig ht retrograde pyelogram appears clear without filling defect. Left retrograde allograft demonstrates at least 3 calculi within the proximal left ureter. Neural placement of ureteral stent. Total fluoros copy time is 1.40 minutes with a total of 12 submitted images to PACS. Total DAP 0.03614 mGym2. Plea se see the operative note for further details.
[2022-12-26 11:41] VITALS: TEMP 98.2
[2022-12-26 13:24] VITALS: BP 172/67; PULSE 80; RESP 18
--- NOTE | 2022-12-26 15:59 | P.OP ---
Date of Procedure: 12/26/22 Preoperative Diagnosis: left ureteral mass, gross hematuria Postoperative Diagnosis: Same Procedure(s) Performed: Cystoscopy, bilateral retrograde pyelogram, left ureteroscopy, ureteral mass biopsy, and stent insertion Implants: 6-Slovenian by 22 cm stent in the left ureter Anesthesia: PERICO Surgeon: Max Ribera Estimated Blood Loss (ml): 10 Pathology: other (left ureteral mass biopsy) Condition: stable Disposition: PACU Indications for Procedure: This is a 77-year-old female with history of gross hematuria, underwent a cystoscopy that showed no abnormality within the bladder. Upon review of a CT urogram there was a questionable filling defect along the course of the distal ureter. Discussed with her given this finding I recommend proceeding with a diagnostic left ureteroscopy with possible biopsy and stent insertion. Discussed we'll also do a right retrograde pyelogram at the same setting to completely evaluate the right collecting system if the left retrograde is normal. 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 Rest of the retrograde pyelogram bilaterally was within normal limits Description of Procedure: Patient brought to the operating room, general anesthesia was induced. She was prepped and draped in sterile fashion and placed in dorsal lithotomy position. Cystoscopy fitted with 22-Slovenian sheath was inserted per urethra, cystoscopy was performed which showed no abnormality within the bladder. Attention was then carried to the right ureteral orifice was was intubated with an open-ended catheter, retrograde pyelogram was performed on the right side which showed no filling defect or hydronephrosis. Attention was then carried to the left side which was intubated with an open-ended catheter, retrograde pyelogram on that side showed a filling defect 1 cm from the UVJ that measured about 2 cm, there was dilation of ureter proximal to that with mild hydronephrosis, there was no filling defect in the rest of the kidney or the ureter. At this time the ureteroscope was inserted per urethra and advanced up the left ureteral orifice, at this time a mass was seen at the distal ureter mass was papillary in appearance and highly concerning for transitional cell carcinoma, multiple biopsies was obtained using the alligator forceps, I attempted to advance the scope past the mass but was completely occlusive. At this time the ureteroscope was withdrawn and a sensor wire was advanced through. Next a ureteral stent was passed over the wire, the proximal curl was visualized on fluoroscopy and the distal curl was visualized using cystoscope. The bladder was emptied and the end of the case. Patient tolerated procedure was taken to recovery in stable condition
== END 2022-12-26 13:36 | disposition home or self-care (01) ==
LOC: OR 07:48
PROVIDERS: ATTEND Urology
DX: C68.0 Malignant neoplasm of urethra (principal); M19.90 Unspecified osteoarthritis, unspecified site; M79.7 Fibromyalgia; F17.200 Nicotine dependence, unspecified, uncomplicated; Z80.1 Family history of malignant neoplasm of trachea, bronchus and lung; Z88.6 Allergy status to analgesic agent; Z79.899 Other long term (current) drug therapy
CPT/HCPCS: 88305; 74420; 52354; 52332; C2625; C1758; C1769; J0330; J1100; J2710; J0690; J2405; J2001; J3010; J2704; Q9967; J2371

== ENCOUNTER → 2023-01-26 | Outpatient (CLI) | payer MEDICARE ==
[2023-01-26 16:08] LABS: Basophils # (A) 0.04 X 10*3/uL (0.00-0.10); Basophils % (A) 0.5 %; Eosinophils # (A) 0.04 X 10*3/uL (0.04-0.35); Eosinophils % (A) 0.5 %; HCT 34.2 % (37.2-46.3); HGB 10.3 g/dL (12.0-15.0); Lymphocytes # (A) 2.47 X 10*3/uL (0.90-5.00); Lymphocytes % (A) 28.7 %; MCH 27.2 pg (27.0-32.0); MCHC 30.1 g/dL (32.0-37.0); MCV 90.2 FL (80.0-97.0); Mean Platelet Volume 9.2 FL (9.5-12.2); Monocytes # (A) 0.59 X 10*3/uL (0.20-1.00); Monocytes % (A) 6.9 %; NRBC Per 100 WBC 0 X 10*3/uL (0.00-0.01); Neutrophils # (A) 5.44 X 10*3/uL (1.80-7.70); Neutrophils % (A) 63.1 %; Platelet Count 343 X 10*3/uL (140-440); RBC 3.79 X 10*6/uL (4.10-5.20); RDW 14.3 % (11.5-14.5); WBC 8.61 X 10*3/uL (4.50-10.00)
[2023-01-26 16:10] LABS: BUN/Creat Ratio 22.75 Ratio (12.00-20.00); Blood Urea Nitrogen 18.2 mg/dL (9.0-27.0); Calcium 10.2 mg/dL (8.7-10.3); Carbon Dioxide 28.7 mmol/L (21.6-31.8); Chloride 100 mmol/L (96-109); Glucose 91 mg/dL (70-110); Potassium 4.5 mmol/L (3.5-5.5); Sodium 138 mmol/L (135-145)
[2023-01-26 16:39] LABS: Appearance,Urine Clear (Clear); Bilirubin,Urine Negative (Negative); Blood,Urine Negative (Negative); Color,Urine Yellow (Yellow); Ketones,Urine Negative (Negative); Nitrite,Urine Negative (Negative); PH, Urine 5.5; Specific Gravity,Urine 1.013 (1.001-1.030); Urobilinogen,Urine 0.2 E.U./DL
== END | disposition home or self-care (01) ==
LOC: LABPAT 09:57
PROVIDERS: ATTEND Urology
DX: Z01.818 Encounter for other preprocedural examination (principal); C66.2 Malignant neoplasm of left ureter; R31.0 Gross hematuria
CPT/HCPCS: 36415; 80048; 81003; 85025; 86850; 86900; 86901; 87086

== ENCOUNTER 2023-02-01 08:05 | Inpatient (IN) | payer MEDICARE ==
[2023-02-01] MEDS ORDERED: LACTATED RINGERS 1,000 ML IV ONE ×2 (08:34)
[2023-02-01] MEDS ORDERED: DEXAMETHASONE SOD PHOSPHATE 4 MG/ML 1 ML VIAL IV ONE (08:35)
[2023-02-01] MEDS ORDERED: droPERidol 5 MG/2 ML VIAL IVP ONE (08:35)
[2023-02-01] MEDS ORDERED: LIDOCAINE 1% (10MG/ML) FOR IV START INTRADERMA PRN (08:35)
[2023-02-01] MEDS ORDERED: HYDROmorphone 0.5 MG/0.5 ML SYRINGE IVP PRN (08:35)
[2023-02-01] MEDS ORDERED: ONDANSETRON 4 MG/2 ML VIAL IVP ONE (08:35)
[2023-02-01] MEDS ORDERED: MIDAZOLAM 2 MG/2 ML VIAL IVP ONE (09:26)
--- NOTE | 2023-02-01 11:59 | P.HPIHPCON ---
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 No additional lesions along the course of the ureter or the kidney. Discussed with her given the finding the option of a distal ureterectomy with ureteral reimplant. Discussed the risk which includes bleeding, infection, injury to nearby organ, discussed potential of cancer recurrence and potential of needing additional treatment. Discussed also the potential complication from anesthesia. Discussed also the need for postoperative surveillance. She understood all the risk and agreed to proceed Consent for Procedure: I have explained the operation/procedure to the patient, including the risks, benefits, side effects, alternative therapies (including not receiving the proposed treatment or service), the likelihood of the patient achieving his/her goals, and potential recuperation problems for the procedure/sedation/analgesia, as well as any blood products, if indicated. I also explained to the patient the risks, benefits and side effects of the alternatives, as well as the risks related to not receiving the proposed procedure, care, treatment, or services. Past Medical History Past Medical History: Fibromyalgia, Osteoarthritis (OA) Additional Past Medical History / Comment(s): osterperosis, History of Any Multi-Drug Resistant Organisms: None Reported Additional Past Surgical History / Comment(s): ureteral stent,hammer toe, ganglion cyst in wrist. eye surgery (unsure what type she had) Past Anesthesia/Blood Transfusion Reactions: No Reported Reaction Additional Past Anesthesia/Blood Transfusion Reaction / Comment(s): confusion when coming out of anesthesia Smoking Status: Current every day smoker Medications and Allergies Home Medications Medication Instructions Recorded Confirmed Type Multivitamins, Thera [Multivitamin] 1 tab PO DAILY #30 tablet 12/23/22 02/01/23 Rx Acetaminophen Tab [Tylenol] 650 mg PO Q6H 01/26/23 02/01/23 History Ferrous Sulfate [Feosol] 325 mg PO DAILY 01/26/23 02/01/23 History traMADol HCl [Ultram] 25 mg PO Q4HR PRN 01/26/23 02/01/23 History Allergies Allergy/AdvReac Type Severity Reaction Status Date / Time latex Allergy Rash/Hives Verified 02/01/23 08:49 nickel Allergy Rash/Hives Verified 02/01/23 08:49 green dye Allergy Rash/Hives Uncoded 02/01/23 08:49 Surgical - Exam Vital Signs Temp Pulse Resp BP Pulse Ox 98 F 86 16 171/81 98 02/01/23 08:45 02/01/23 08:45 02/01/23 08:45 02/01/23 08:45 02/01/23 08:45 - General no distress, no pain - Eyes normal ocular movement, no pale - ENT normal nares, normal mucosa - Respiratory normal expansion, normal respiratory effort - Abdomen Abdomen: soft, non tender - Psychiatric oriented to time, oriented to person, oriented to place Assessment and Plan Assessment: OR for robotic assisted left distal ureterectomy with ureteral reimplant
[2023-02-01] MEDS ORDERED: ONDANSETRON 4 MG/2 ML VIAL IVP PRN (12:00)
--- NOTE | 2023-02-01 12:00 | P.ANPRN ---
Procedure Note - Anesthesia - Nerve Block Performed Bilateral Erector Spinae Single Time Out Performed: Yes Date of Procedure: 02/01/23 Procedure Start Time: : Procedure Stop Time: : Location of Patient: PreOp Indication: Acute Post-Operative Pain, Requested by Surgeon Sedation Type: Sedate with meaningful contact maintained Preparation: Sterile Prep Position: Prone Needle Types: Pajunk Needle Gauge: 21 Ultrasound used to visualize needle placement: Yes Ultrasound used to observe medication spread: Yes Blood Aspirated: No Pain Paresthesia on Injection Noted: No Resistance on Injection: Normal Image Stored and Saved: Yes Events: Uneventful and Well Tolerated (ropi .5% 15cc plus dexamethasone 4mg plus ns 10cc given bilaterally at L1)
[2023-02-01] MEDS ORDERED: fentaNYL (PF) 50 MCG/ML 2 ML AMP ONE (12:58)
[2023-02-01] MEDS ORDERED: ROCURONIUM 10 MG/ML (5 ML VIAL) IV ONE (12:58)
[2023-02-01] MEDS ORDERED: NEOSTIGMINE 1 MG/ML 10 ML VIAL ONE (12:58)
[2023-02-01] MEDS ORDERED: LABETALOL 5 MG/ML VIAL MDV ONE (12:58)
[2023-02-01] MEDS ORDERED: SODIUM CHLORIDE 0.9% (PF) 10 ML VIAL ONE (12:58)
[2023-02-01] MEDS ORDERED: SUCCINYLCHOLINE CHLORIDE 200 MG/10 ML VIAL IV ONE (12:58)
[2023-02-01] MEDS ORDERED: DEXAMETHASONE SOD PHOSPHATE 4 MG/ML 1 ML VIAL ONE (12:58)
[2023-02-01] MEDS ORDERED: PROPOFOL 10 MG/ML 20 ML VIAL IV ONE (12:58)
[2023-02-01] MEDS ORDERED: ROPIVACAINE 5 MG/ML 30 ML VIAL ONE (12:58)
[2023-02-01] MEDS ORDERED: GLYCOPYRROLATE 0.2 MG/ML 2 ML VIAL ONE (12:58)
[2023-02-01] MEDS ORDERED: LIDOCAINE 1% INJ 10MG/ML (20 ML MDV) ONE (12:58)
[2023-02-01] MEDS ORDERED: BUPIVACAINE (PF) 0.5% 30 ML VIAL SQ ONE (13:44)
[2023-02-01] MEDS: LACTATED RINGERS 1,000 ML IV SCH (17:22)
[2023-02-01] MEDS: D5-0.45% NACL WITH KCL 20MEQ/L 1,000 ML IV SCH (18:28)
[2023-02-01] MEDS: KETOROLAC 15 MG/ML 1 ML VIAL IVP SCH (18:36)
[2023-02-01] MEDS: HEPARIN SODIUM,PORCINE 5,000 UNIT/ML 1 ML VIAL SQ SCH (20:08)
[2023-02-02] MEDS: KETOROLAC 15 MG/ML 1 ML VIAL IVP SCH ×5 (00:20→23:55)
[2023-02-02] MEDS: D5-0.45% NACL WITH KCL 20MEQ/L 1,000 ML IV SCH (01:22)
--- NOTE | 2023-02-02 07:52 | P.DS ---
Providers Attending physician: Max Ribera MD Primary care physician: Jermaine [facility] Course: The 7-year-old female with a distal left ureteral tumor underwent distal ureterectomy with reimplantation yesterday by Dr. Ribera. She did well overnight. Her pain is controlled. Her urine is clear. Cystoscopy a moderate amount of fluid from the GEN drain. Her abdomen is soft. I will advance her diet. She'll ambulate. If her pain is under control to be discharged home with the Barton and drain. She'll follow-up with next week. Her condition is good. Activity will be light. Her diet is regular. A be given a prescription of Tylenol 3 upon discharge. Patient Condition at Discharge: Good Plan - Discharge Summary Discharge Rx Participant: No New Discharge Prescriptions: New Acetaminophen-Codeine 300-30mg [Tylenol w/codeine #3] 1 tab PO Q6H PRN 3 Days #12 tablet PRN Reason: Pain Control Acetaminophen-Codeine 300-30mg [Tylenol w/codeine #3] 1 tab PO Q6H PRN 3 Days #12 tablet PRN Reason: Pain Control No Action traMADol HCl [Ultram] 25 mg PO Q4HR PRN PRN Reason: Pain Multivitamins, Thera [Multivitamin] 1 tab PO DAILY #30 tablet Ferrous Sulfate [Feosol] 325 mg PO DAILY Acetaminophen Tab [Tylenol] 650 mg PO Q6H Discharge Medication List Multivitamins, Thera [Multivitamin] 1 tab PO DAILY #30 tablet 12/23/22 [Rx] Acetaminophen Tab [Tylenol] 650 mg PO Q6H 01/26/23 [History] Ferrous Sulfate [Feosol] 325 mg PO DAILY 01/26/23 [History] traMADol HCl [Ultram] 25 mg PO Q4HR PRN 01/26/23 [History] Acetaminophen-Codeine 300-30mg [Tylenol w/codeine #3] 1 tab PO Q6H PRN 3 Days #12 tablet 02/02/23 [Rx] Acetaminophen-Codeine 300-30mg [Tylenol w/codeine #3] 1 tab PO Q6H PRN 3 Days #12 tablet 02/02/23 [Rx] Follow up Appointment(s)/Referral(s): Max Ribera MD [STAFF PHYSICIAN] - 1 Week Discharge Disposition: HOME SELF-CARE
[2023-02-02] MEDS: HYDROcodone/APAP 5-325MG 1 EACH TAB PO PRN ×2 (08:38→15:30)
[2023-02-02] MEDS: LACTATED RINGERS 1,000 ML IV SCH (08:58)
[2023-02-02] MEDS ORDERED: FERROUS SULFATE 325 MG TAB PO SCH (09:00)
[2023-02-02] MEDS: HEPARIN SODIUM,PORCINE 5,000 UNIT/ML 1 ML VIAL SQ SCH ×2 (09:00→20:18)
[2023-02-03] MEDS: HYDROcodone/APAP 5-325MG 1 EACH TAB PO PRN (01:55)
[2023-02-03 02:13] VITALS: RESP 15
[2023-02-03] MEDS: KETOROLAC 15 MG/ML 1 ML VIAL IVP SCH (05:40)
[2023-02-03] MEDS: LACTATED RINGERS 1,000 ML IV SCH (07:49)
[2023-02-03 08:10] VITALS: BP 154/82; PULSE 63; TEMP 97.6
--- NOTE | 2023-02-06 13:02 | P.OP ---
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 No additional lesions along the course of the ureter or the kidney. Discussed with her given the finding the option of a distal ureterectomy with ureteral reimplant. Discussed the risk which includes bleeding, infection, injury to nearby organ, discussed potential of cancer recurrence and potential of needing additional treatment. Discussed also the potential complication from anesthesia. Discussed also the need for postoperative surveillance. She understood all the risk and agreed to proceed Description of Procedure: After preoperative antibiotics were started, the patient was taken to the operating room. Anesthesia was induced and the patient was placed in a supine position, with adequate padding of the pressure points, shoulders, back, legs and arms. She was then prepped and draped in the standard fashion. A critical pause was performed using two patient identifiers. A 16F chandra catheter was placed to gravity drainage. A pneumo-peritoneum was created with placement of a Veress needle to 20 mm Hg without complication, and a 8 Fr trocar was placed above the umbillicus. Under direct vision a 8mm robotic ports was placed lateral to each rectus slightly below the camera port. The left iliac fossa 8mm port was placed. The right corporate law assistant right iliac fossa 12mm port After the patient was placed in the trendelenberg position, the robot was then docked to the 8mm robotic ports and then each robotic arm and tower was checked in relation to the patient's legs and hands to avoid inadvertent compression. The peritoneal cavity was inspected. Adhesions were lysed along the left lower quadrant. This point the ureter was identified as it crosses over the iliac vessels. Next the peritoneum overlying in the ureter was incised. the ureter was identified, and a vessel loop was placed around the ureter. Dissection was carried down distally all the way down to the bladder. At this time the ureter was identified as it enters the bladder. Next a circumferential incision was made around point of insertion of the ureter to the bladder and the the bladder was excised. the bladder was closed using 20V lock. Closure Was tested and was watertight at 100 mL but, upon placing the greater volume small leak could be seen. At this point the mass was palpable within the ureter, this was compared with a computed tomography scan and was in identical location. The ureter was transected by providing 1 cm margin from the mass proximally. Specimen was p laced in an Endo Catch bag and removed through the corporate law assistant port. The ureter was next spatulated and an incision was made at the posterior dome along the left side. Anastomosis was performed using 40V lock at the posterior dome. Prior to placing the anterior stitches ureteral stent was placed.. The anastomosis was watertight and tension-free. Next a GEN drain was placed through the left lower quadrant.. All ports were closed with a subcuticular 4-0 monocryl and Dermabond. Sponge, instrument, and needle counts were correct at the end of the case x2. the specimen was sent to pathology for diagnosis and will be available in a week. The patient tolerated the surgery well and without complication. She awoke without difficulty and was taken to the recovery room in stable condition
== END 2023-02-03 08:46 | disposition home or self-care (01) | DRG 658 ==
LOC: OR 08:05 → 6NMEDSUR 12:00 → OR 12:00 → 6NMEDSUR 15:50
PROVIDERS: ADMIT Urology; ATTEND Urology
PROC: 0T170ZB Bypass Left Ureter to Bladder, Open Approach (ICD-10-PCS; 2023-02-01)
PROC: 8E0W0CZ Robotic Assisted Procedure of Trunk Region, Open Approach (ICD-10-PCS; 2023-02-01)
PROC: 0T9700Z Drainage of Left Ureter with Drainage Device, Open Approach (ICD-10-PCS; 2023-02-01)
PROC: 0TB70ZZ Excision of Left Ureter, Open Approach (ICD-10-PCS; principal; 2023-02-01 09:55)
DX: C66.1 Malignant neoplasm of right ureter (principal); M19.90 Unspecified osteoarthritis, unspecified site; M81.0 Age-related osteoporosis without current pathological fracture; M79.7 Fibromyalgia; Z91.040 Latex allergy status; Z91.041 Radiographic dye allergy status; Z91.048 Other nonmedicinal substance allergy status
CPT/HCPCS: 64999; 88307

== ENCOUNTER 2023-05-02 13:21 | Emergency (ER) | payer MEDICARE ==
[2023-05-02 14:17] VITALS: RESP 18; TEMP 98.4
--- NOTE | 2023-05-02 14:28 | ED ---
General Adult HPI - General Source: patient Mode of arrival: wheelchair Limitations: no limitations <Lio Oliva - Last Filed: 05/02/23 14:26> - General Source: RN notes reviewed, old records reviewed Mode of arrival: wheelchair Limitations: no limitations - History of Present Illness -: days(s) Location: mouth Severity scale (1-10): 7 Quality: sharp Consistency: constant Improves with: none Worsens with: none Associated Symptoms: denies other symptoms Treatments Prior to Arrival: none <Jovanny Burgess - Last Filed: 05/13/23 14:42> - General Chief complaint: Dental/Oral Stated complaint: mouth pain Time Seen by Provider: 05/02/23 14:10 - History of Present Illness Initial comments: Patient is a pleasant 78-year-old female present to the emergency department with concerns with left-sided tongue pain. Onset of symptoms was close to a month ago. Patient did see a dentist and had teeth extracted. Dental extraction made no improvement. Discomfort is persistent and sometimes worse, feeling like a stinging or nerve pain. Patient has markedly decreased oral intake. Almost no solid food intake. Patient states fluid intake is around a quart of normal. No fever. No swelling. No history of similar symptoms previously. Patient was diagnosed with urinary cancer several months ago. (Lio Oliva) This is a 78-year-old female to the ER for evaluation of left tongue pain severe left leg pain and did have recent teeth extraction. Patient is still having persistent and severe pain (Jovanny Burgess) - Related Data Home Medications Medication Instructions Recorded Confirmed Acetaminophen Tab [Tylenol] 650 mg PO Q6H 01/26/23 02/01/23 Ferrous Sulfate [Feosol] 325 mg PO DAILY 01/26/23 02/01/23 traMADol HCl [Ultram] 25 mg PO Q4HR PRN 01/26/23 02/01/23 Previous Rx's Medication Instructions Recorded Multivitamins, Thera [Multivitamin] 1 tab PO DAILY #30 tablet 12/23/22 Acetaminophen-Codeine 300-30mg 1 tab PO Q6H PRN 3 Days #12 tablet 02/02/23 [Tylenol w/codeine #3] Acetaminophen-Codeine 300-30mg 1 tab PO Q6H PRN 3 Days #12 tablet 02/02/23 [Tylenol w/codeine #3] Gabapentin 300 mg PO TID 3 Days #9 cap 05/02/23 Magic Cup 1 each PO TID-W/MEALS #60 each 05/02/23 Allergies Allergy/AdvReac Type Severity Reaction Status Date / Time latex Allergy Rash/Hives Verified 05/02/23 13:50 nickel Allergy Rash/Hives Verified 05/02/23 13:50 green dye Allergy Rash/Hives Uncoded 05/02/23 13:50 Review of Systems ROS Other: All systems not noted in ROS Statement are negative. Constitutional: Denies: fever Eyes: Denies: eye pain ENT: Reports: as per HPI Respiratory: Denies: cough, dyspnea Cardiovascular: Denies: chest pain <Lio Oliva - Last Filed: 05/02/23 14:26> ROS Other: All systems not noted in ROS Statement are negative. <Jovanny Burgess - Last Filed: 05/13/23 14:42> ROS Statement: Those systems with pertinent positive or pertinent negative responses have been documented in the HPI. Past Medical History Past Medical History: Cancer, Fibromyalgia, Osteoarthritis (OA) Additional Past Medical History / Comment(s): osterperosis, History of Any Multi-Drug Resistant Organisms: None Reported Additional Past Surgical History / Comment(s): ureteral stent,hammer toe, ganglion cyst in wrist. eye surgery (unsure what type she had) Past Anesthesia/Blood Transfusion Reactions: No Reported Reaction Additional Past Anesthesia/Blood Transfusion Reaction / Comment(s): confusion when coming out of anesthesia Past Psychological History: No Psychological Hx Reported Smoking Status: Current every day smoker Past Alcohol Use History: None Reported Past Drug Use History: None Reported <Lio Oliva - Last Filed: 05/02/23 14:26> General Exam Limitations: no limitations General appearance: alert, in no apparent distress Head exam: Present: normocephalic Eye exam: Present: normal appearance ENT exam: Present: other (Tenderness left side of tongue. Recent dental extraction left side with some tenderness as well. No significant erythema or swelling) Neck exam: Present: normal inspection Respiratory exam: Present: normal lung sounds bilaterally Cardiovascular Exam: Present: regular rate, normal rhythm GI/Abdominal exam: Present: soft. Absent: tenderness Extremities exam: Present: normal inspection Neurological exam: Present: alert Psychiatric exam: Present: normal affect, normal mood Skin exam: Present: normal color <Lio Oliva - Last Filed: 05/02/23 14:26> General appearance: alert, in no apparent distress, anxious Head exam: Present: atraumatic, normocephalic, normal inspection Eye exam: Present: normal appearance, PERRL, EOMI. Absent: scleral icterus, conjunctival injection, periorbital swelling ENT exam: Present: normal exam, mucous membranes moist Neck exam: Present: normal inspection. Absent: tenderness, meningismus, lymphadenopathy Respiratory exam: Present: normal lung sounds bilaterally. Absent: respiratory distress, wheezes, rales, rhonchi, stridor Cardiovascular Exam: Present: normal rhythm, tachycardia, normal heart sounds. Absent: systolic murmur, diastolic murmur, rubs, gallop, clicks GI/Abdominal exam: Present: soft, normal bowel sounds. Absent: distended, tenderness, guarding, rebound, rigid Extremities exam: Present: normal inspection, full ROM, normal capillary refill. Absent: tenderness, pedal edema, joint swelling, calf tenderness Back exam: Present: normal inspection Neurological exam: Present: alert, oriented X3, CN II-XII intact Psychiatric exam: Present: normal affect, normal mood Skin exam: Present: warm, dry, intact, normal color. Absent: rash <Jovanny Burgess - Last Filed: 05/13/23 14:42> Course <Jovanny Burgess - Last Filed: 05/13/23 14:42> Vital Signs 05/02/23 05/02/23 13:47 17:18 Temperature 98.4 F Pulse Rate 102 H 94 Respiratory 18 18 Rate Blood Pressure 183/89 191/98 O2 Sat by Pulse 95 93 L Oximetry - Reevaluation(s) Reevaluation #1: Medical records reviewed (Jovanny Burgess) Reevaluation #2: Patient symptoms improved (Jovanny Burgess) Reevaluation #3: Patient informed of results and questions answered (Jovanny Burgess) Reevaluation #4: Was pt. sent in by a medical professional or institution (, PA, INTERNATIONAL ORGANIZER, urgent care, hospital, or correction...) When possible be specific @ -no Did you speak to anyone other than the patient for history (EMS, parent, family, police, friend...)? What history was obtained from this source @ -no Did you review nursing and triage notes (agree or disagree)? Why? @ -agree Are old charts reviewed (outside hosp., previous admission, EMS record, old EKG, old radiological studies, urgent care reports/EKG's, correction records)? Report findings @ -yes Differential Diagnosis (chest pain, altered mental status, abdominal pain women, abdominal pain men, vaginal bleeding, weakness, fever, dyspnea, syncope, headache, dizziness, GI bleed, back pain, seizure, CVA, palpatations, mental health, musculoskeletal)? @ -prior EKG interpreted by me (3pts min.). @ -yes X-rays interpreted by me (1pt min.). @ -no CT interpreted by me (1pt min.). @ -Yes negative for acute disease U/S interpreted by me (1pt. min.). @ -no What testing was considered but not performed or refused? (CT, X-rays, U/S, labs)? Why? @ -none What meds were considered but not given or refused? Why? @ -none Did you discuss the management of the patient with other professionals (professionals i.e. DrBrady, PA, INTERNATIONAL ORGANIZER, lab, RT, psych nurse, sr. social media & mobile manager, paper processing machine helper, teacher, emergency response officer, home health care case manager)? Give summary @ -no Was smoking cessation discussed for >3mins.? @ -no Was critical care preformed (if so, how long)? @ -no Were there social determinants of health that impacted care today? How? (Homelessness, low income, unemployed, alcoholism, drug addiction, transportation, low edu. Level, literacy, decrease access to med. care, longterm, rehab)? @ -none Was there de-escalation of care discussed even if they declined (Discuss DNR or withdrawal of care, Hospice)? DNR status @ -no What co-morbidities impacted this encounter? (DM, HTN, Smoking, COPD, CAD, Cancer, CVA, ARF, Chemo, Hep., AIDS, mental health diagnosis, sleep apnea, morbid obesity)? @ -none Was patient admitted / discharged? Hospital course, mention meds given and route, prescriptions, significant lab abnormalities, going to OR and other pertinent info. @ - 78 female to ER with tongue pain. At this point patient is tired of being in the hospital his tongue pain is chronic and she has no relief she will except continue to try mouthwash at home for pain to resolve Discharge Undiagnosed new problem with uncertain prognosis? @ -no Drug Therapy requiring intensive monitoring for toxicity (Heparin, Nitro, Insulin, Cardizem)? @ -no Were any procedures done? @ -no Diagnosis/symptom? @ -Tongue pain Acute, or Chronic, or Acute on Chronic? @ -Acute Uncomplicated (without systemic symptoms) or Complicated (systemic symptoms)? @ -Complicated Side effects of treatment? @ -no Exacerbation, Progression, or Severe Exacerbation? @ -exacerbation Poses a threat to life or bodily function? How? (Chest pain, [place], [place], pneumonia, PE, COPD, DKA, ARF, appy, cholecystitis, CVA, Diverticulitis, Homicidal, Suicidal, threat to staff... and all critical care pts) @ -yes with significant tongue pain, possible CVA (Jovanny Burgses) EKG Findings - EKG Comments: EKG Findings:: EKG is sinus 90 OK 149 QRS 81 QTc 379 - EKG Results: EKG: interpreted by ERMD <Jovanny Burgess - Last Filed: 05/13/23 14:42> Medical Decision Making - Lab Data Result diagrams: 05/02/23 15:01 05/02/23 15:01 - EKG Data -: EKG Interpreted by Me - Radiology Data Radiology results: report reviewed (CT soft tissue neck is negative for acute disease), image reviewed <Jovanny Burgess - Last Filed: 05/13/23 14:42> - Medical Decision Making 78 female to ER with tongue pain. At this point patient is tired of being in the hospital his tongue pain is chronic and she has no relief she will except continue to try mouthwash at home for pain to resolve (Jovanny Burgess) - Lab Data Lab Results 05/02/23 05/02/23 05/02/23 Range/Units 15:01 15:01 15:01 WBC 8.6 (3.8-10.6) k/uL RBC 4.76 (3.80-5.40) m/uL Hgb 12.5 (11.4-16.0) gm/dL Hct 39.7 (34.0-46.0) % MCV 83.3 (80.0-100.0) fL MCH 26.2 (25.0-35.0) pg MCHC 31.5 (31.0-37.0) g/dL RDW 17.2 H (11.5-15.5) % Plt Count 279 (150-450) k/uL MPV 7.0 Neutrophils % 72 % Lymphocytes % 22 % Monocytes % 5 % Eosinophils % 0 % Basophils % 0 % Neutrophils # 6.2 (1.3-7.7) k/uL Lymphocytes # 1.9 (1.0-4.8) k/uL Monocytes # 0.4 (0-1.0) k/uL Eosinophils # 0.0 (0-0.7) k/uL Basophils # 0.0 (0-0.2) k/uL Hypochromasia Slight Anisocytosis Slight PT 10.1 (10.0-12.5) sec INR 0.9 (<1.2) APTT 24.2 (22.0-30.0) sec Sodium 139 (137-145) mmol/L Potassium 4.0 (3.5-5.1) mmol/L Chloride 102 (98-107) mmol/L Carbon Dioxide 29 (22-30) mmol/L Anion Gap 8 mmol/L BUN 14 (7-17) mg/dL Creatinine 0.74 (0.52-1.04) mg/dL Est GFR (CKD-EPI)AfAm >90 (>60 ml/min/1.73 sqM) Est GFR (CKD-EPI)NonAf 80 (>60 ml/min/1.73 sqM) Glucose 99 (74-99) mg/dL Calcium 10.0 (8.4-10.2) mg/dL Total Bilirubin 0.6 (0.2-1.3) mg/dL AST 29 (14-36) U/L ALT 12 (4-34) U/L Alkaline Phosphatase 76 (38-126) U/L Total Protein 7.7 (6.3-8.2) g/dL Albumin 4.1 (3.5-5.0) g/dL Disposition <Lio Oliva - Last Filed: 05/02/23 14:26> Is patient prescribed a controlled substance at d/c from ED?: No Time of Disposition: 16:25 <Jovanny Burgess - Last Filed: 05/13/23 14:42> Clinical Impression: Tongue pain Disposition: HOME SELF-CARE Condition: Good Instructions (If sedation given, give patient instructions): Oral Candidiasis (ED), Ankyloglossia (ED) Prescriptions: Gabapentin 300 mg PO TID 3 Days #9 cap Magic Cup 1 each PO TID-W/MEALS #60 each Referrals: Jermaine Schmid MD [Primary Care Provider] - 1-2 days
[2023-05-02] MEDS: MAG HYDROX/AL HYDROX/SIMETH 30 ML, diphenhydrAMINE ELIXIR 75 MG, LIDOCAINE VISCOUS 2% 3... PO SCH (15:10)
[2023-05-02] MEDS: SODIUM CHLORIDE 0.9% 1,000 ML IV STA (15:12)
[2023-05-02 15:35] LABS: Anisocytosis Slight; Basophils % (A) 0 %; Eosinophils % (A) 0 %; HCT 39.7 % (34.0-46.0); HGB 12.5 gm/dL (11.4-16.0); Hypochromasia Slight; Lymphocytes # (A) 1.9 k/uL (1.0-4.8); Lymphocytes % (A) 22 %; MCH 26.2 pg (25.0-35.0); MCHC 31.5 g/dL (31.0-37.0); MCV 83.3 fL (80.0-100.0); Monocytes # (A) 0.4 k/uL (0-1.0); Monocytes % (A) 5 %; Neutrophils # (A) 6.2 k/uL (1.3-7.7); Neutrophils % (A) 72 %; Platelet Count 279 k/uL (150-450); RBC 4.76 m/uL (3.80-5.40); RDW 17.2 % (11.5-15.5); WBC 8.6 k/uL (3.8-10.6)
[2023-05-02 15:45] LABS: ALT 12 U/L (4-34); AST 29 U/L (14-36); African American GFR (CKD) >90 (>60 ml/min/1.73 sqM); Albumin 4.1 g/dL (3.5-5.0); Alkaline Phosphatase 76 U/L (38-126); Anion Gap 8 mmol/L; Blood Urea Nitrogen 14 mg/dL (7-17); Carbon Dioxide 29 mmol/L (22-30); Chloride 102 mmol/L (98-107); Glucose 99 mg/dL (74-99); Non-African American GFR(CKD) 80 (>60 ml/min/1.73 sqM); Sodium 139 mmol/L (137-145); Total Bilirubin 0.6 mg/dL (0.2-1.3); Total Protein 7.7 g/dL (6.3-8.2)
[2023-05-02 16:06] LABS: INR 0.9 (<1.2); Partial Thromboplastin Time 24.2 sec (22.0-30.0); Prothrombin Time 10.1 sec (10.0-12.5)
--- NOTE | 2023-05-02 17:02 | CT ---
EXAMINATION TYPE: CT soft tissue neck w con CT DLP: 174.9 mGycm, Automated exposure control for dose reduction was used. DATE OF EXAM: 05/02/2023 4:49 PM COMPARISON: None. CLINICAL INDICATION:Female, 78 years old with history of tongue pain; PHH, Left side, pain. recent to oth extraction. TECHNIQUE: Standard enhanced CT of the neck. Axial sections with coronal and sagittal reformats were obtained. Contrast used:80ml mL of Isovue 300 with IV Contrast, (None if empty) Oral contrast used: (None if empty) FINDINGS: Brain: Visualized portions are grossly unremarkable. Orbits: Unremarkable Sinuses: Grossly unremarkable. Spaces of the neck: Clear and symmetric. Packing material is seen within the left side of the orophar ynx.. No evidence of organizing fluid collection. The lung appears relatively symmetric. Musculoskeletal: No acute osseous pathology. Degenerative disc disease changes of the visualized spin e are present. Lymph nodes: Multiple nonenlarged lymph nodes are seen along both anterior chains of the neck. Vascular structures: Patent with atherosclerotic plaque of the internal carotid arteries at the bifur cation. Thoracic Inlet/airway: Airway is patent. Fibrotic changes in the lung apices with scarring and superi mposed centrilobular emphysema. Large severe atherosclerosis of the arterial vasculature. Bilateral b reast implants are partially visualized. Soft tissues/Thyroid: Thyroid and remainder of the soft tissues are unremarkable. Other: none. IMPRESSION Posttreatment changes to the left mandible. No evidence of fracture. Packing material in the surgical bed in the oral cavity. No evidence for organizing fluid collection. The tongue is rather symmetric given differences in patient positioning.
[2023-05-02] MEDS: GABAPENTIN 300 MG CAP PO STA (17:30)
[2023-05-02 17:45] VITALS: BP 191/98; PULSE 94
== END 2023-05-02 17:33 | disposition home or self-care (01) ==
LOC: EC 13:21
DX: K14.6 Glossodynia (principal); R00.0 Tachycardia, unspecified; F17.200 Nicotine dependence, unspecified, uncomplicated; Z91.040 Latex allergy status; Z91.09 Other allergy status, other than to drugs and biological substances
CPT/HCPCS: 36415; 80053; 85025; 85610; 85730; 70491; 99284; 96360; Q9967

== ENCOUNTER → 2023-06-29 | Outpatient (CLI) | payer MEDICARE ==
[2023-06-29 10:19] LABS: African American GFR (CKD) 83 (>60 ml/min/1.73 sqM); Blood Urea Nitrogen 13 mg/dL (7-17); Non-African American GFR(CKD) 72 (>60 ml/min/1.73 sqM)
--- NOTE | 2023-06-29 13:42 | CT ---
EXAMINATION TYPE: CT urogram wo/w con DATE OF EXAM: 06/29/2023 COMPARISON: 01-08 INDICATION: malignant neoplasm of Lt ureter DLP: 1131 mGycm, Automated exposure control for dose reduction was used. CONTRAST: 100 mL of Isovue 300. Study performed without Oral Contrast TECHNIQUE: Axial images were obtained from above the diaphragm to the pubic rami in the axial plane a t 5 mm thick sections. Reconstructed images are reviewed on the computer in the coronal plane. FINDINGS: Limited CT sections are obtained the lung bases. The lung bases are clear. Bilateral breast prosthe ses are present. CT ABDOMEN: Liver: Normal Spleen: Calcified granulomata are scattered through the spleen. Pancreas: Normal Adrenal glands: The adrenal glands are normal. Gallbladder: Normal Kidneys: No masses are evident. Minimal bilateral hydronephrosis may be present. Ureters are limited especially through the pelvis. No obvious filling defects are identified. There is a punctate calcifi cation in the left renal pelvic region measuring 0.2 cm. There is a 1.8 cm cyst at the superior pole right kidney. Delayed axial images were through the kidneys which remain unremarkable. Aorta: Vascular calcification is within the aorta. Fusiform prominence of the mid abdominal aorta wi th an AP dimension of 2.3 cm is evident. This terminates at the bifurcation. There is some dilatation of the distal right common iliac artery measuring 1.5 cm. Inferior vena cava: Normal. CT PELVIS: Loops of bowel within the abdomen and pelvis are normal. The study is without oral contrast limit ing bowel evaluation. Appendix: Normal as visualized. Urinary bladder: Normal. Genitourinary structures: Pessary is present. Uterus appears normal. Adnexa are normal. Osseous structures: No suspicious lytic or sclerotic lesions. Three-D reconstructed images are performed through the bilateral renal collecting systems. Kidneys have a normal appearance. Renal calyces are prominent more so on the right. There is mild pro minence of the ureters. There is limitation adjacent to the mid and distal right ureter which may be related to vascular calcification. The patient's reported left intraureteral abnormality is not ident ified on this exam IMPRESSION: 1. Mild bilateral hydronephrosis may be slightly greater on the right. 2. Patient's reported left ureteral abnormality not identified during this exam. 3. Fusiform prominence mid abdominal aorta
== END | disposition home or self-care (01) ==
LOC: RADCTMAIN 09:25
PROVIDERS: ATTEND Urology
DX: C66.2 Malignant neoplasm of left ureter (principal); N13.30 Unspecified hydronephrosis
CPT/HCPCS: 82565; 84520; 74178; 36415; 74400; Q9967

== ENCOUNTER 2023-10-24 15:10 | Observation (INO) | payer MEDICARE ==
[2023-10-24] MEDS ORDERED: ASPIRIN 325 MG TAB ONE (15:22)
[2023-10-24] MEDS ORDERED: ATORVASTATIN 40 MG TAB ONE (15:22)
[2023-10-24] MEDS ORDERED: cefTRIAXone IN SWFI 1,000 MG/10 ML SYRINGE IVP ONE (15:23)
[2023-10-24] MEDS ORDERED: ACETAMINOPHEN TAB 325 MG TAB ONE (22:55)
[2023-10-25] MEDS ORDERED: OXcarbazepine 150 MG TAB ONE ×2 (06:00)
[2023-10-25] MEDS ORDERED: ACETAMINOPHEN TAB 325 MG TAB ONE (18:32)
[2023-10-26] MEDS ORDERED: OXcarbazepine 150 MG TAB ONE ×2 (00:01→06:00)
[2023-10-26] MEDS ORDERED: ATORVASTATIN 40 MG TAB ONE (09:36)
[2023-10-26] MEDS ORDERED: ASPIRIN 325 MG TAB ONE (09:37)
[2023-10-26] MEDS ORDERED: POTASSIUM CHLORIDE ER 20 MEQ TAB.ER PO ONE ×2 (09:37→10:59)
[2023-10-26] MEDS ORDERED: CLOPIDOGREL 75 MG TAB ONE (17:49)
[2023-10-26] MEDS ORDERED: ACETAMINOPHEN TAB 325 MG TAB ONE (17:50)
[2023-10-27] MEDS ORDERED: OXcarbazepine 150 MG TAB ONE (00:01)
[2023-10-27] MEDS ORDERED: ATORVASTATIN 40 MG TAB ONE (09:03)
[2023-10-27] MEDS ORDERED: CLOPIDOGREL 75 MG TAB ONE (09:03)
[2023-10-27] MEDS ORDERED: ASPIRIN 325 MG TAB ONE (09:04)
--- NOTE | 2023-11-23 13:39 | CT ---
EXAM: CT head without contrast DATE OF EXAM: 10/24/23 INDICATION: Patient age:APOLINAR CRISTINA : 1945 Reason for study: Neuro deficit, concern for stroke. COMPARISON: None, please note PACS downtime occurred during the radiologist interpretation of these i mages with limited priors/reports. TECHNIQUE: Multiple axial CT images of the brain were obtained without IV contrast. One or more CT do se reduction strategies were utilized during this examination. Total DLP administered was 1477 mGycm. FINDINGS: Extra-axial spaces: No abnormal extra-axial fluid collections. Ventricular system: Within normal limits Cerebral parenchyma: No acute intraparenchymal hemorrhage or mass effect. The munguia-white junction is well differentiated. Cerebellum: Unremarkable. Mass effect: No evidence of midline shift. Intracranial vasculature: Atherosclerotic calcifications of the intracranial vessels. Soft tissues: Normal. Calvarium/osseous structures: No depressed skull fracture. Paranasal sinuses and mastoid air cells: Clear. Visualized orbits: Orbital contents are intact. IMPRESSION: 1. No acute intracranial process. 2. Nonspecific white matter changes, likely secondary to chronic small vessel ischemic disease.
--- NOTE | 2023-11-23 13:39 | CT ---
EXAM: CT CT angiogram head and neck DATE OF EXAM: 10/24/23 INDICATION: Patient age:APOLINAR CRISTINA : 1945 Reason for study: Neuro deficit, concern for stroke. COMPARISON: None, please note PACS downtime occurred during the radiologist interpretation of these i mages with limited priors/reports. TECHNIQUE: Axially acquired helical CT angiogram of the head and neck was obtained with contrast util izing 65 cc of Isovue-370 administered intravenously. Axial images are supplemented with 3D reconstru ctions which were post-processed at an independent workstation. One or more CT dose reduction strateg ies were utilized during this examination. Total DLP is 1477 mGycm for all studies. Axial images are supplemented with coronal and sagittal MIP reconstructions. 3D reconstructions were also performed and were post-processed at an independent workstation. Estimated carotid stenosis was calculated using the NASCET criteria. FINDINGS: No evidence of acute intracranial hemorrhage, mass effect, or midline shift. The ventricles, sulci, a nd cisterns are unremarkable. The visualized portions of the internal carotid arteries, middle cerebral arteries, anterior cerebral arteries, and posterior cerebral arteries are patent. Atherosclerosis of the intracranial vasculatur e. The basilar and vertebral arteries are patent. Right Carotid System: The common carotid artery and external carotid artery are patent. Calcified plaque resulting in at le ast 26% stenosis. The remaining portions of the internal carotid artery demonstrate normal size witho ut significant narrowing. Left Carotid System: The common carotid artery and external carotid artery are patent. Calcified plaque resulting in at le ast 50 % stenosis. The remaining portions of the internal carotid artery demonstrate normal size with out significant narrowing. The origins of the great vessels and vertebral arteries appear unremarkable. The vertebral arteries are patent. Scattered calcifications along the left vertebral artery with less than 25% stenosis. Moderate centrilobular emphysema changes are seen in the lung apices. Atherosclerotic ulcers are note d in the aortic arch superimposed on aortic arch saccular outpouching measuring up to 3.9 cm in total ity. There is some consolidation changes along the posterior lungs bilaterally that represent atelect asis. IMPRESSION: 1. No evidence of dissection of the cervical internal carotid arteries or vertebral arteries. 2. 25% stenosis of the right carotid bifurcation and 50% stenosis of the left carotid bifurcation du e to calcified plaque. 3. No evidence of high-grade stenosis or intracranial aneurysm. 4. Scattered atherosclerotic coruscations along the left vertebral artery without hemodynamically si gnificant stenosis. 5. Moderate emphysema changes with consolidation changes likely representing atelectasis along the l vince lungs posteriorly. 6. 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
--- NOTE | 2023-11-23 20:09 | MR ---
Meliza Phillips : [birth year] EXAMINATION TYPE: MR brain wo con DATE OF EXAM: 10/26/2023 COMPARISON: None available during downtime HISTORY: 77-year-old female left-sided weakness, left eye blurry, evaluate for CVA. TECHNIQUE: Multiplanar, multisequence images of the brain and brainstem were acquired without IV con trast. Diffusion weighted imaging is performed. FINDINGS: DWI sequence shows punctate focus of restricted diffusion superior left frontal cortex, left centrum semiovale deep white matter, and left thalamus. These areas show corresponding bright T2 and FLAIR si gnal. No evidence for mass, mass effect, midline shift, herniation, effacement of basal cisterns, or extra- axial fluid collection. There is mild generalized supratentorial volume loss. No hydrocephalus. Major intracranial flow voids are intact. T2/FLAIR weighted sequences show severe patchy right signal change within the bilateral paramedian po ns and moderate to severe confluent bright white matter change in both cerebral hemispheres. Also pat danny increased signal within the bilateral basal ganglia and thalami. There is partially empty sella. Otherwise, midline structures demonstrate normal morphology. The aircraft de icer installer niocervical junction is normal. Trace mucosal thickening ethmoid air cells. Globes are intact. Prominent fluid within the right great er than left mastoid air cells. IMPRESSION: 1. 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 Additional punctate focus of ac jia infarct in the left centrum semiovale deep white matter as well as the left thalamus. Greater monie n 6 hours in duration. No mass effect or midline shift. 2. Severe burden of chronic small vessel ischemic disease throughout the supratentorial white matter as well as the monika. 3. Fluid in the right greater than left mastoid air cells. Early for any focal pain to exclude mastoi ditis.
--- NOTE | 2023-12-05 09:06 | XR ---
Site ID [facility] Patient Meliza Phillips T ID [id number] Age/Gender: 78Y, F Order # N/A Procedure XR CHEST 2V Date 10/24/2023 12:36:00 PM EXAMINATION TYPE: Chest X-ray 2 Views DATE OF EXAM: 11/10/2023 7:13 PM COMPARISON: Chest radiographs from 12/21/2022 TECHNIQUE: Chest X-ray 2 Views Frontal and lateral views of the chest. Delayed interpretation due to institutional cyber attack. CLINICAL INDICATION: Female, 78 year old with history of stroke; FINDINGS: Lungs/Pleura: There is flattening of the diaphragm with increased lucency of the lungs. No evidence o f pneumothorax, pleural effusion or focal consolidation. Suggested COPD. Biapical pleural thickening. Chronic interstitial change. Pulmonary vascularity: Unremarkable. Heart/mediastinum: Cardiomediastinal silhouette is unremarkable. Musculoskeletal: No acute osseous pathology. Advanced degenerative disc disease. Increased thoracic k yphosis. Multilevel anterior wedge compression deformities of the lower thoracic spine again demonstr ated. Osteopenia limits evaluation. Other findings: Mid chest densities again likely related to overlying breast implants. IMPRESSION: Chronic-appearing changes without evidence for acute process.
== END 2023-10-27 19:47 | disposition home or self-care (01) ==
LOC: 3SCARD 15:10
PROVIDERS: ADMIT Family Medicine; ATTEND Family Medicine
DX: I63.9 Cerebral infarction, unspecified (principal); I71.22 Aneurysm of the aortic arch, without rupture; I51.3 Intracardiac thrombosis, not elsewhere classified; G50.0 Trigeminal neuralgia; N39.41 Urge incontinence; I10 Essential (primary) hypertension; E78.5 Hyperlipidemia, unspecified; J44.9 Chronic obstructive pulmonary disease, unspecified; E87.6 Hypokalemia; R82.90 Unspecified abnormal findings in urine; Z85.54 Personal history of malignant neoplasm of ureter; Z87.891 Personal history of nicotine dependence
CPT/HCPCS: 70450; 70496; 70498; 70551; 71046; 80053; 80061; 81003; 83036; 84484; 85025; 85610; 85730; 93306

== ENCOUNTER 2023-10-31 21:52 | Inpatient (IN) | payer MEDICARE ==
[2023-10-31] MEDS ORDERED: HYDROmorphone 1 MG/ML 1 ML SYRINGE ONE (22:48)
[2023-10-31] MEDS ORDERED: ONDANSETRON 4 MG/2 ML VIAL ONE (23:40)
[2023-11-01] MEDS ORDERED: OXcarbazepine 300 MG TAB ONE (00:01)
[2023-11-01] MEDS ORDERED: ceFAZolin 10 GM VIAL IVPB ONE (00:01)
[2023-11-01] MEDS ORDERED: SODIUM CHLORIDE 0.9% 50 ML BAG ONE (00:01)
[2023-11-01] MEDS ORDERED: MORPHINE SULFATE 4 MG/ML SYRINGE ONE (07:04)
[2023-11-01] MEDS ORDERED: LACTATED RINGERS 1,000 ML BAG ONE (16:13)
[2023-11-01] MEDS ORDERED: ONDANSETRON 4 MG/2 ML VIAL ONE (16:53)
[2023-11-01] MEDS ORDERED: GLYCOPYRROLATE 0.2 MG/ML 2 ML VIAL ONE (17:25)
[2023-11-01] MEDS ORDERED: SUCCINYLCHOLINE CHLORIDE 200 MG/10 ML VIAL IV ONE (17:25)
[2023-11-01] MEDS ORDERED: PHENYLEPHRINE-0.9% NACL SYG 1,000 MCG/10 ML SYRINGE ONE (17:25)
[2023-11-01] MEDS ORDERED: LIDOCAINE 1% INJ 10MG/ML (20 ML MDV) ONE (17:25)
[2023-11-01] MEDS ORDERED: fentaNYL (PF) 50 MCG/ML 2 ML AMP ONE (17:25)
[2023-11-01] MEDS ORDERED: ROCURONIUM 10 MG/ML (5 ML VIAL) IV ONE (17:25)
[2023-11-01] MEDS ORDERED: PROPOFOL 10 MG/ML 20 ML VIAL IV ONE (17:25)
[2023-11-01] MEDS ORDERED: ePHEDrine 50 MG/ML 1 ML VIAL ONE (17:25)
[2023-11-01] MEDS ORDERED: NEOSTIGMINE 1 MG/ML 10 ML VIAL ONE (17:25)
[2023-11-01] MEDS ORDERED: SENNOSIDES-DOCUSATE SODIUM 1 EACH TAB PO ONE (23:36)
[2023-11-02] MEDS ORDERED: HYDROcodone/APAP 10-325MG 1 EACH TAB ONE (04:16)
[2023-11-02] MEDS ORDERED: HYDROmorphone 0.5 MG/0.5 ML SYRINGE ONE ×4 (11:43→22:45)
[2023-11-02] MEDS ORDERED: SENNOSIDES-DOCUSATE SODIUM 1 EACH TAB PO ONE (20:12)
[2023-11-03] MEDS ORDERED: HALOPERIDOL LACTATE 5 MG/ML 1 ML VIAL ONE (03:03)
[2023-11-03] MEDS ORDERED: HYDROcodone/APAP 5-325MG 1 EACH TAB ONE (08:13)
[2023-11-03] MEDS ORDERED: LORazepam 2 MG/ML INJ ONE (14:47)
[2023-11-03] MEDS ORDERED: cefTRIAXone 1 GM VIAL ONE (17:40)
[2023-11-03] MEDS ORDERED: FUROSEMIDE 10 MG/ML 2 ML VIAL ONE (21:57)
[2023-11-04] MEDS ORDERED: cefTRIAXone 1 GM VIAL ONE (08:07)
[2023-11-04] MEDS ORDERED: PANTOPRAZOLE 40 MG/10 ML VIAL ONE (08:10)
[2023-11-04] MEDS ORDERED: THIAMINE 100 MG TAB ONE (08:10)
[2023-11-04] MEDS ORDERED: FOLIC ACID 1 MG TAB ONE (08:10)
[2023-11-04] MEDS ORDERED: QUEtiapine 25 MG TAB ONE (08:10)
[2023-11-04] MEDS ORDERED: HEPARIN SODIUM,PORCINE 5,000 UNIT/ML 1 ML VIAL ONE (08:11)
[2023-11-04] MEDS ORDERED: MULTIVITAMINS, THERA 1 EACH TAB ONE (08:11)
[2023-11-04] MEDS ORDERED: DEXTROSE 50% SYRINGE 50 ML IVP ONE (15:48)
[2023-11-05] MEDS ORDERED: OXcarbazepine 300 MG TAB ONE (00:01)
[2023-11-05] MEDS ORDERED: SODIUM CHLORIDE 0.9% 50 ML BAG ONE (00:01)
[2023-11-05] MEDS ORDERED: HYDROcodone/APAP 5-325MG 1 EACH TAB ONE (07:43)
[2023-11-05] MEDS ORDERED: MULTIVITAMINS, THERA 1 EACH TAB ONE (09:16)
[2023-11-05] MEDS ORDERED: HEPARIN SODIUM,PORCINE 5,000 UNIT/ML 1 ML VIAL ONE ×2 (09:16→21:16)
[2023-11-05] MEDS ORDERED: PANTOPRAZOLE 40 MG/10 ML VIAL ONE (09:16)
[2023-11-05] MEDS ORDERED: FOLIC ACID 1 MG TAB ONE (09:17)
[2023-11-05] MEDS ORDERED: cefTRIAXone 1 GM VIAL ONE (09:17)
[2023-11-05] MEDS ORDERED: THIAMINE 100 MG TAB ONE (09:17)
[2023-11-05] MEDS ORDERED: CLOPIDOGREL 75 MG TAB ONE (09:17)
[2023-11-05] MEDS ORDERED: ATORVASTATIN 40 MG TAB ONE (21:16)
[2023-11-05] MEDS ORDERED: QUEtiapine 25 MG TAB ONE (21:16)
[2023-11-06] MEDS ORDERED: KCL IV ONE (00:01)
[2023-11-06] MEDS ORDERED: D5 IV ONE (00:01)
[2023-11-06] MEDS ORDERED: NACL IV ONE (00:01)
[2023-11-06] MEDS ORDERED: MULTIVITAMINS, THERA 1 EACH TAB ONE (07:57)
[2023-11-06] MEDS ORDERED: HEPARIN SODIUM,PORCINE 5,000 UNIT/ML 1 ML VIAL ONE ×2 (07:58→21:55)
[2023-11-06] MEDS ORDERED: cefTRIAXone 1 GM VIAL ONE (07:58)
[2023-11-06] MEDS ORDERED: CLOPIDOGREL 75 MG TAB ONE (07:58)
[2023-11-06] MEDS ORDERED: PANTOPRAZOLE 40 MG/10 ML VIAL ONE (07:58)
[2023-11-06] MEDS ORDERED: THIAMINE 100 MG TAB ONE (07:58)
[2023-11-06] MEDS ORDERED: FOLIC ACID 1 MG TAB ONE (07:58)
[2023-11-06] MEDS ORDERED: NICOTINE 14MG/24HR PATCH TRANSDERM ONE (10:32)
[2023-11-06] MEDS ORDERED: amLODIPine 5 MG TAB ONE ×2 (10:32→10:35)
[2023-11-06] MEDS ORDERED: ATORVASTATIN 40 MG TAB ONE (21:55)
[2023-11-06] MEDS ORDERED: SENNOSIDES-DOCUSATE SODIUM 1 EACH TAB PO ONE (22:02)
[2023-11-07] MEDS ORDERED: KCL IV ONE (00:01)
[2023-11-07] MEDS ORDERED: NACL IV ONE (00:01)
[2023-11-07] MEDS ORDERED: D5 IV ONE (00:01)
[2023-11-07] MEDS ORDERED: OXcarbazepine 300 MG TAB ONE (00:01)
[2023-11-07] MEDS ORDERED: SODIUM CHLORIDE 0.9% 50 ML BAG ONE (00:01)
[2023-11-07] MEDS ORDERED: CLOPIDOGREL 75 MG TAB ONE (08:27)
[2023-11-07] MEDS ORDERED: PANTOPRAZOLE 40 MG/10 ML VIAL ONE (08:27)
[2023-11-07] MEDS ORDERED: HEPARIN SODIUM,PORCINE 5,000 UNIT/ML 1 ML VIAL ONE ×2 (08:27→20:08)
[2023-11-07] MEDS ORDERED: amLODIPine 5 MG TAB ONE (08:27)
[2023-11-07] MEDS ORDERED: MULTIVITAMINS, THERA 1 EACH TAB ONE (08:27)
[2023-11-07] MEDS ORDERED: cefTRIAXone 1 GM VIAL ONE (08:28)
[2023-11-07] MEDS ORDERED: THIAMINE 100 MG TAB ONE (08:28)
[2023-11-07] MEDS ORDERED: FOLIC ACID 1 MG TAB ONE (08:28)
[2023-11-07] MEDS ORDERED: NICOTINE 14MG/24HR PATCH TRANSDERM ONE (08:36)
[2023-11-07] MEDS ORDERED: ATORVASTATIN 40 MG TAB ONE (20:07)
[2023-11-07] MEDS ORDERED: SENNOSIDES-DOCUSATE SODIUM 1 EACH TAB PO ONE ×2 (20:10→21:30)
[2023-11-08] MEDS ORDERED: NICOTINE 14MG/24HR PATCH TRANSDERM ONE (09:06)
[2023-11-08] MEDS ORDERED: amLODIPine 5 MG TAB ONE (09:06)
[2023-11-08] MEDS ORDERED: MULTIVITAMINS, THERA 1 EACH TAB ONE (09:07)
[2023-11-08] MEDS ORDERED: PANTOPRAZOLE 40 MG/10 ML VIAL ONE (09:07)
[2023-11-08] MEDS ORDERED: CLOPIDOGREL 75 MG TAB ONE (09:07)
[2023-11-08] MEDS ORDERED: HEPARIN SODIUM,PORCINE 5,000 UNIT/ML 1 ML VIAL ONE (09:07)
[2023-11-08] MEDS ORDERED: FOLIC ACID 1 MG TAB ONE (09:08)
[2023-11-08] MEDS ORDERED: cefTRIAXone 1 GM VIAL ONE (09:08)
[2023-11-08] MEDS ORDERED: THIAMINE 100 MG TAB ONE (09:08)
--- NOTE | 2023-11-30 10:19 | OP ---
OPERATIVE REPORT DATE OF SERVICE : 11/01/2023 PREOPERATIVE DIAGNOSES: 1. Right basicervical intertrochanteric hip fracture. 2. History of prior stroke 1 week ago, on Plavix. 3. History of tobacco smoking. POSTOPERATIVE DIAGNOSES: 1. Right basicervical intertrochanteric hip fracture. 2. History of prior stroke 1 week ago, on Plavix. 3. History of tobacco smoking. PROCEDURE: Operative fixation of right intertrochanteric hip fracture with short intramedullary hip screw. (A skilled investigative assistant was required due to the complexity of surgery, for patient positioning, draping, exposure, retraction, closure of the wound, and application of dressing). BLOOD LOSS: 100 mL. FLUIDS: 500 mL of crystalloid. COMPLICATIONS: None. INDICATIONS: The patient is a very pleasant female with multiple medical problems including having had a recent stroke 1 week ago, who presented to our emergency department last night following a ground-level fall. She sustained an isolated injury to her right hip and x- rays showed a displaced basicervical femoral neck fracture. She was admitted under my care. Internal Medicine saw the patient and cleared her for surgery. I met with the patient and her family before surgery to discuss her injury and treatment. My recommendation was to proceed with an intramedullary hip screw to stabilize her fracture and facilitate early mobilization, while also helping to control her pain. The patient and her family understand that she is at an elevated risk of having a complication due to her multiple medical issues, particularly having had a recent stroke. We discussed the potential risks and complications of surgery outlined including, but certainly not limited to, risks from anesthesia, superficial infection, deep infection, delayed wound healing, nonunion, malunion, hardware failure with varus collapse or lag screw cutout, periprosthetic fracture, damage to local blood vessels or nerves, DVT, PE, other medical complications, failure to thrive, and possibly . The patient and her family again understand that she is at a very high risk of having a complication given her multiple medical problems, but ultimately decided to proceed with surgery. They provided both their verbal and written consents. DESCRIPTION OF PROCEDURE: The patient was identified in the preoperative holding and the correct right leg was marked with my initials. I reviewed the consent form with the patient and her family and their questions were answered. The patient was then brought back to the operating room by Anesthesia. She was given preoperative antibiotic and tranexamic acid. Boots for the [place] table were applied while she was on the gurney. The patient was then carefully transferred onto the [place] table. The boots for the [place] table were attached to the spars and secured. A perineal post was placed. The left arm was padded and draped out to the side. The right arm was draped across to her chest with a pillow, foam, and tape to facilitate placement of the intramedullary hip screw. Nonsterile drapes were applied. A time-out was then performed, identifying the correct patient, operative extremity, and procedure. I began by performing a reduction with longitudinal traction, internal rotation, and adduction of the operative leg. The left leg was dropped to the floor and scissored with the [place] table to facilitate imaging. A large C-arm was then brought in and the fracture was reduced on biplanar fluoroscopic images. The right leg was then prepped and draped in the standard sterile fashion. I began by making a 3 cm incision just proximal to the tip of the greater trochanter in line with the femur. Skin incision was made with a scalpel and dissection was carried down bluntly to the tip of the greater trochanter. A sharp awl was placed just medial to the tip of the greater trochanter on an AP view and collinear with the shaft of the femur on the lateral view. A guide pin was passed through the awl to the level of the lesser trochanter. A soft tissue protecting sleeve and opening reamer were then used over the opening guide pin. Both were removed. A long ball-tipped guidewire was placed into the proximal femur and down the canal. A 12.5 mm reamer was passed over the ball-tipped guidewire and passed easily through the proximal femur. At this point, a short 11 mm diameter gamma nail was dispensed and hooked up to the targeting arm. I verified that the double sleeve and triple sleeve corresponded through the targeting arm to the small gamma nail. The nail was then gently tapped over the ball-tipped guidewire to the appropriate depth using fluoroscopy. The long ball-tipped guidewire was removed. The double sleeve was placed through the targeting arm to the lateral skin and a skin incision was made with a scalpel. The double sleeve was brought down to the lateral cortex of the femur and a guide pin was placed in the center position on the femoral head in both an AP and true lateral view. The guide pin was measured, reamed, and a partially threaded lag screw was applied. Compression was applied through the targeting arm. A setscrew was placed proximally, brought down fully, and backed off a quarter turn to allow compression. At this point, attention was turned to the distal interlocking screw. The triple sleeve was placed through the targeting arm to the lateral femur and a skin incision was made. The triple sleeve was then brought down to the lateral cortex of the femur. A drill was used followed by a depth gauge and a distal interlocking screw was placed. The targeting arm was removed and final fluoroscopic images were taken. All 3 wounds were then thoroughly irrigated and closed in layers. Sterile dressings were applied. The drapes were then taken down. The patient was transferred to the OR table and brought to Recovery having tolerated the procedure well. PLAN: The patient is going to be admitted to the general orthopedic floor under my care. She can weightbear as tolerated on her right leg. She will receive 2 doses of postoperative antibiotics. I am okay with her resuming Plavix tomorrow, the dose to be decided by Internal Medicine. The patient will likely need discharge to a skilled rehab or correction. MMODL / IJN: [id number] /
--- NOTE | 2023-12-04 13:00 | XR ---
Site ID [facility] Patient Zoë Phillips ID [id number] Order # Procedure CHEST SINGLE VIEW EXAMINATION TYPE: XR chest 1V DATE OF EXAM: 11/01/2023 12:02 PM CLINICAL INDICATION: FALL PAIN COMPARISON: None THIS EXAM WAS READ DURING PACS DOWNTIME, NO PRIORS AVAILABLE. TECHNIQUE: XR chest 1V Frontal view of the chest. FINDINGS: Lungs/Pleura: There is no evidence of pleural effusion, focal consolidation, or pneumothorax. Pulmonary vascularity: Pulmonary vascular congestion. Heart/mediastinum: Cardiomediastinal silhouette is prominent in size. Musculoskeletal: No acute osseous pathology. IMPRESSION: Cardiomegaly and mild pulmonary vascular congestion. Correlate with BNP for congestive heart failure.
--- NOTE | 2023-12-04 13:00 | XR ---
Site ID [facility] Patient Zoë Phillips ID [id number] Order # Procedure XR pelvis AP view EXAMINATION TYPE: XR pelvis AP view, x-ray right hip 2 view DATE OF EXAM: 11/01/2023 11:57 AM CLINICAL INDICATION: Fall COMPARISON: THIS EXAM WAS READ DURING PACS DOWNTIME, NO PRIORS AVAILABLE. TECHNIQUE: XR pelvis AP view, examined in a single projection. FINDINGS/IMPRESSION: 1. Right proximal humerus intertrochanteric fracture with shortening and varus deformity. 2. Mild to moderate left hip osteoarthrosis with joint space tearing osteophyte formation. The remai nder the pelvis is intact.
--- NOTE | 2023-12-05 05:54 | XR ---
EXAMINATION TYPE: XR chest 1V DATE OF EXAM: 11/05/2023 COMPARISON: NONE HISTORY: 78-year-old female CHF TECHNIQUE: Single frontal view of the chest is obtained. FINDINGS: No priors available for comparison. Heart upper limits of normal in size. Relative upper l vince lucencies may reflect an background increased interstitial density may reflect COPD. Focal densit ies at the mid and lower lungs possibly underlying breast implants and should be correlated clinicall y. Nodule at the left apex measuring 1 cm. IMPRESSION: 1. No priors available for comparison. Suspect underlying COPD. Extensive opacity mid and lower lungs on both sides may relate to underlying breast implants. Clinically correlate. Infiltrate would need to be excluded on clinical basis given these extensive densities. 2. A 1 cm nodule at the left apex. Nonemergent follow-up CT chest to further characterize.
--- NOTE | 2023-12-05 08:44 | XR ---
Patient Zoë Phillips ID [id number] Order # EXAMINATION TYPE: XR chest 1V DATE OF EXAM: 11/03/2023 COMPARISON: No comparison available on downtime PACS. INDICATION: CHF TECHNIQUE: Single frontal view of the chest is obtained. FINDINGS: The heart size is normal. Right mediastinum appears somewhat prominent right hilum. Bilateral apical thickening is present. The pulmonary vasculature is prominent. Mild increased lung markings in the lower lung tomas. IMPRESSION: 1. Somewhat prominent right hilum. There is some mild right rotation. Follow-up however is recommende d. 2. Some prominence of pulmonary vascular markings increased lower lung field infiltrates. Pulmonary e jennifer could be considered. Follow-up can be performed
--- NOTE | 2023-12-20 10:36 | FL ---
EXAMINATION TYPE: FL guidance operating room, XR Hip Complete RT DATE OF EXAM: 11/27/2023 8:35 AM COMPARISON: Pre Operative Images if available both CT/MRI or plain film CLINICAL INDICATION: Female, 78 years old with history of RIGHT HIP FX ORIF; TECHNIQUE: FL guidance operating room, XR Hip Complete RT, multiple fluoroscopic images provided for procedure. Total fluoroscopy time: 51 seconds Total submitted images to PACS: 5 DAP: 1.56 mGym2 Gycm2 uGym2 cGycm2 or equivalent. FINDINGS: Fluoroscopic images during internal fixation/arthroplasty demonstrate fixation hardware in appropriat e position. Hardware appears intact. No immediate complication identified. IMPRESSION: 1. No evidence for intraoperative complication. 2. Please see the operative/procedural note for further details. [facility], , 12/20/2023 10:33 AM
--- NOTE | 2023-12-20 15:16 | OP ---
OPERATIVE REPORT DATE OF SERVICE : 11/01/2023 PREOPERATIVE DIAGNOSES: 1. Right intertrochanteric hip fracture. 2. Recent stroke, on Plavix. 3. History of heavy smoking. 4. Cachexia. 5. Failure to thrive. POSTOPERATIVE DIAGNOSES: 1. Right intertrochanteric hip fracture. 2. Recent stroke, on Plavix. 3. History of heavy smoking. 4. Cachexia. 5. Failure to thrive. PROCEDURE PERFORMED: Operative fixation of right intertrochanteric hip fracture with short intramedullary hip screw. MANUAL TESTER: Marcelino Rosenthal PA-C (a skilled dental chairside assistant was required due to the complexity of the surgery for the patient positioning, draping, exposure, retraction, closure of wound, and application of dressing). ANESTHESIA: General. FLUIDS: 300 mL of crystalloid. BLOOD LOSS: 100 mL. COMPLICATIONS: None. INDICATIONS FOR PROCEDURE: The patient is a very pleasant adult female with multiple medical issues, who is admitted following a ground level fall with a right hip fracture. The patient had a stroke one week ago and is on Plavix. She is also extremely cachectic and has had failure to thrive. She presented to the emergency department and x-rays showed a displaced intertrochanteric hip fracture. She was admitted under my care and Internal Medicine was consulted. I am with the patient and her family had discussed treatment options. My recommendation was to stabilize her fracture to facilitate early mobilization. I was very blunt with the family and explaining that she is at a very high risk of having a complication, giving her recent stroke and very poor overall health. They understand that. We discussed the potential risks and complications of surgery at length including but certainly not limited to risks from anesthesia, superficial infection, deep infection, delayed wound healing, damage to blood vessels or nerves, nonunion, malunion, hardware failure, varus collapse, lag screw cutout, need for further surgery, further fracture, DVT, PE, acute coronary events, stroke, other medical complications and possibly . The patient and her family understand her high risk including the possibility of . We all agreed that stabilization of her fracture would be palliative and would allow mobilization and give her a best chance, but her prognosis is extremely guarded. The family understands this, they provided their consent to go forward with surgery. DESCRIPTION OF PROCEDURE: The patient was identified in the preoperative holding and the correct right leg was marked with my initials. I reviewed the consent form with the family and their questions were answered. The patient was then brought back to the operating room. While still on her hospital bed, a general anesthetic and preoperative antibiotics were given. Boots for the [place] table were applied to her legs. The patient was then carefully transferred onto the [place] table. A perineal post was immediately placed. Her left arm was positioned on an arm mi and pillow. Her right ipsilateral arm was draped across her chest and secured with a pillow, foam, and tape. Both boots were attached to the spar of the [place] table. A perineal post was placed. Nonsterile drapes were applied. A time-out was performed, identifying the correct the patient, operative extremity and procedure. The table was then elevated. The contralateral leg was then dropped towards the floor and scissored. A provisional reduction was performed using longitudinal traction, internal rotation and adduction. Fluoroscopy was brought in and the reduction was assessed on an AP and lateral view. Once the fracture was reduced, fluoro was brought out. The right leg was then prepped and draped in the standard sterile fashion. I began by outlying a 3 cm incision proximal to the greater trochanter in-line with the femur. Skin incision was made with the scalpel and dissection was carried down through the fascia with tip of the greater trochanter. A sharp awl was placed just medial to the tip of the greater trochanter on an AP view and collinear with the canal on the lateral view. A 3.2 mm guide pin was advanced through the awl to the level of the lesser trochanter. Its position was confirmed with biplanar fluoroscopic images. An opening reamer and soft tissue protector were placed over the wire and introduced into the proximal femur to the level of the lesser trochanter. At this point, the opening reamer and 3.2 mm guide pin were removed. A 3.2 mm ball-tipped guidewire was then introduced into the proximal femur. A 12.5 mm reamer was placed by hand and easily advanced into the femur. At this point, an 11 mm diameter short intramedullary hip screw was dispensed and hooked up to the targeting arm. I verified both the double and triple sleeves lined up with their corresponding slots on the nail through the targeting arm. The nail was then gently advanced to the appropriate depth over the ball-tipped guidewire. After the nail had been fully seated, the ball-tipped guidewire was removed. The double sleeve was placed through the targeting arm and its position on the skin was marked. The skin incision was made with the scalpel through the skin and fashioned down the lateral cortex of the femur. The double sleeve was brought up to the lateral cortex of the femur. A guide pin was then placed in the low center position on the AP view and centered in the femoral head on the lateral view. Its length was measured with a depth gauge. The reamer was then used and a partially threaded lag screw was inserted over the guide pin into the femoral head generating excellent compression. The setscrew was placed proximally to the targeting arm into the proximal nail fully tightened and backed off a quarter turn to allow compression. The triple sleeve was then placed through the targeting arm for its corresponding distal interlocking screw. A skin incision was made with the scalpel down to the lateral cortex of the femur. A triple sleeve was advanced to the lateral cortex of the femur. A drill was used followed by depth gauge. A distal interlocking screw was then placed. The targeting arm was removed. Final fluoroscopic images were taken which showed adequate reduction of the right hip fracture and excellent placement of the hardware. All three wounds were then thoroughly irrigated and closed in layers. Sterile dressings were applied. The patient was then transferred from the OR table to a gurney, extubated, and brought to the recovery, having tolerated the procedure well. PLAN: The patient is going to be transferred back to the orthopedic floor. She can weightbear as tolerated on her right leg. She will need two doses of postoperative antibiotics. I would like to attempt to mobilize out of bed to a chair. The patient has been on Plavix due to her recent stroke and I will defer anticoagulation and DVT prophylaxis to Internal Medicine given this. She is okay to resume Plavix postoperative day #1. The patient will be admitted under my care through the weekend. If she is still in the hospital due to medical issues on Sunday, we will transfer care to Internal Medicine as this is formal report, if the patient has multiple medical problems. MMODL / IJN: [id number] /
== END 2023-11-08 15:40 | DRG 480 ==
LOC: EC 21:52 → 1SOBS 23:30 → UNDOADMIN 11-01 07:15 → UNDODISIN 11-08 15:40
PROVIDERS: ADMIT Family Medicine; ATTEND Family Medicine
PROC: 0QS606Z Reposition Right Upper Femur with Intramedullary Internal Fixation Device, Open Approach (ICD-10-PCS; principal; 2023-11-01 07:30)
PROC: 30233N1 Transfusion of Nonautologous Red Blood Cells into Peripheral Vein, Percutaneous Approach (ICD-10-PCS; 2023-11-03)
DX: S72.141A Displaced intertrochanteric fracture of right femur, initial encounter for closed fracture (principal); G93.41 Metabolic encephalopathy; E44.1 Mild protein-calorie malnutrition; D62 Acute posthemorrhagic anemia; N39.0 Urinary tract infection, site not specified; R62.7 Adult failure to thrive; F03.90 Unspecified dementia, unspecified severity, without behavioral disturbance, psychotic disturbance, mood disturbance, and anxiety; W18.30XA Fall on same level, unspecified, initial encounter; Z79.02 Long term (current) use of antithrombotics/antiplatelets; Z91.040 Latex allergy status; Z91.048 Other nonmedicinal substance allergy status; Z91.02 Food additives allergy status; Z87.891 Personal history of nicotine dependence; Z86.73 Personal history of transient ischemic attack (TIA), and cerebral infarction without residual deficits; Z86.69 Personal history of other diseases of the nervous system and sense organs; Z68.20 Body mass index [BMI] 20.0-20.9, adult
CPT/HCPCS: 70450; 71045; 73502; 86850; 86900; 86901; 87086; 93005; 94760; 99285

== ENCOUNTER 2023-11-14 22:45 | Emergency (ER) | payer MEDICARE ==
[~2023-11-14 22:45] MED LIST changes: -DEXAMETHASONE SOD PHOSPHATE 4 MG/ML 1 ML VIAL IV ONE; -HYDROmorphone 0.5 MG/0.5 ML SYRINGE IVP PRN; -LACTATED RINGERS 1,000 ML IV SCH; -LIDOCAINE 1% (10MG/ML) FOR IV START INTRADERMA PRN; -MIDAZOLAM 2 MG/2 ML VIAL IV PRN; -ONDANSETRON 4 MG/2 ML VIAL IVP ONE; +SODIUM CHLORIDE 0.9% 100 ML BAG ONE; +cefTRIAXone 2 GM VIAL ONE
[2023-11-15 05:05] VITALS: TEMP 98.3
[2023-11-15 05:06] VITALS: BP 130/58; PULSE 91; RESP 18
[2023-11-15 08:11] LABS: ALT 24 U/L (4-34); AST 32 U/L (14-36); African American GFR (CKD) >90 (>60 ml/min/1.73 sqM); Alkaline Phosphatase 105 U/L (38-126); Anion Gap 1 mmol/L; Blood Urea Nitrogen 25 mg/dL (7-17); Calcium 9.3 mg/dL (8.4-10.2); Carbon Dioxide 35 mmol/L (22-30); Chloride 100 mmol/L (98-107); Glucose 102 mg/dL (74-99); NT-Pro-B-Type Natriuretic Pept 288 pg/mL; Non-African American GFR(CKD) >90 (>60 ml/min/1.73 sqM); Potassium 4.2 mmol/L (3.5-5.1); Sodium 136 mmol/L (137-145); Total Bilirubin 0.7 mg/dL (0.2-1.3)
[2023-11-15 09:15] LABS: Basophils % (A) 0 %; Eosinophils # (A) 0.1 k/uL (0-0.7); Eosinophils % (A) 1 %; HCT 32.7 % (34.0-46.0); Hypochromasia Marked; Lymphocytes # (A) 1.6 k/uL (1.0-4.8); Lymphocytes % (A) 13 %; MCH 30.1 pg (25.0-35.0); MCHC 30.7 g/dL (31.0-37.0); MCV 98.1 fL (80.0-100.0); Monocytes # (A) 0.6 k/uL (0-1.0); Monocytes % (A) 5 %; Neutrophils # (A) 10.1 k/uL (1.3-7.7); Neutrophils % (A) 80 %; Platelet Count 561 k/uL (150-450); RBC 3.33 m/uL (3.80-5.40); RDW 14.4 % (11.5-15.5); WBC 12.7 k/uL (3.8-10.6)
--- NOTE | 2023-11-15 12:36 | CT ---
Patient: Meliza Phillips T Ordering Physician: Unknown, Unknown ID: [id number] Phone, Pager: Phone: N/A Pager: N/A : 1945 Age/Gender: 78Y, F Primary Location: N/A Procedure: CXR1V Study Date: 11:48:38 PM Order #: N/A EXAMINATION TYPE: XR chest 1V DATE OF EXAM: 11/15/2023 CLINICAL HISTORY: Shortness of breath/weakness TECHNIQUE: Single frontal view of the chest is obtained. COMPARISON: Prior chest x-ray October 24, 2023 FINDINGS: There is some chronic parenchymal changes bilaterally without suspicious focal air space o pacity, pleural effusion, or pneumothorax seen. The cardiac silhouette size remains within normal li mits. The osseous structures remaining demineralized. IMPRESSION: No acute process.
--- NOTE | 2023-12-31 16:01 | XR ---
EXAMINATION TYPE: XR Chest 1V DATE OF EXAM: 11/15/2023 CLINICAL HISTORY: Shortness of breath/weakness TECHNIQUE: Single frontal view of the chest is obtained. COMPARISON: Prior chest x-ray October 24, 2023 FINDINGS: There is some chronic parenchymal changes bilaterally without suspicious focal air space opacity, pleural effusion, or pneumothorax seen. The cardiac silhouette size remains within normal limits. The osseous structures remaining demineralized. IMPRESSION: No acute process MTDD
== END 2023-11-15 05:52 | disposition other institution (70) ==
LOC: EC 22:45
DX: R41.82 Altered mental status, unspecified
CPT/HCPCS: 36415; 71045; 71275; 80053; 83605; 83880; 84484; 85025; 85379; 87635; 93005; 96374; 99285

== ENCOUNTER → 2024-02-06 | Outpatient (CLI) | payer MEDICARE ==
[2024-02-06 13:16] LABS: African American GFR (CKD) >90 (>60 ml/min/1.73 sqM); Blood Urea Nitrogen 18 mg/dL (7-17); Non-African American GFR(CKD) 84 (>60 ml/min/1.73 sqM)
--- NOTE | 2024-02-06 16:39 | CT ---
EXAMINATION TYPE: CT urogram wo/w con CT DLP: 1617 mGycm, Automated exposure control for dose reduction was used. 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 Delayed imaging was performed. Coronal and sagittal reformats were perfo rmed. One or more CT dose reduction strategies were utilized during this examination. FINDINGS: GENITOURINARY: RIGHT KIDNEY AND URETER: 3 mm nonobstructive right lower pole calculus. No hydronephrosis or hydroure ter. Lower pole 2.1 cm cyst. No suspicious enhancing lesion. Contrast demonstrated within the proxima l right renal collecting system however there is poor opacification of the proximal and mid right ure ter which limits evaluation. LEFT KIDNEY AND URETER: No calculi. No hydronephrosis or hydroureter. No renal mass or other lesions. Contrast is demonstrated throughout the length of the left ureter. No urothelial lesions identified: no filling defect, dilation, stricture or wall thickening. URINARY BLADDER: No calculi. No gross evidence of mass or other lesions however evaluation is signifi cantly limited due to under distention. REPRODUCTIVE: Pelvic floor laxity with pessary device. ABDOMEN LIVER: Unremarkable. GALLBLADDER AND BILE DUCTS: Unremarkable PANCREAS: Unremarkable. SPLEEN: Multiple calcified granulomas within the spleen.. ADRENAL GLANDS: Unremarkable. STOMACH AND BOWEL: Distal colonic diverticulosis without evidence for acute diverticulitis. No focal bowel wall thickening or surrounding inflammatory changes.. No evidence of bowel obstruction. PERITONEUM: No evidence of pneumoperitoneum, free fluid, or adenopathy. VASCULATURE: Moderate atherosclerotic calcifications are present throughout the abdominal aorta and i ts branches. Fusiform ectasia of the infrarenal abdominal aorta measuring up to 2.8 cm. Stable ectasi a of the right common iliac artery measuring up to 1.6 cm. MUSCULOSKELETAL: No acute osseous abnormalities. Postsurgical fixation changes of the right proximal femur with Fixation screw. Diffuse bone demineralization. Multilevel degenerative changes of the visualized spin e with multilevel central compression deformities. SOFT TISSUE/ABDOMINAL WALL: Unremarkable. LOWER CHEST: Centrilobular emphysematous changes. Anterior lingular subpleural reticular scarring. Mi nimal right lower lobe linear peripheral scarring. Partial visualization of bilateral breast prosthes is demonstrating some peripheral calcification. Dystrophic as a nodule within the inferior right [address]. Moderate coronary arterial calcifications. IMPRESSION: 1. No evidence of urolithiasis or suspicious renal/urothelial neoplasm identified. Patient's reported left ureteral abnormality is not identified on this exam. Poor visualization of the urinary bladder due to under distention. 2. Benign right renal cyst redemonstrated. Nonobstructive right renal calculus. 3. Stable ectasia of the infrarenal abdominal aorta. 4. COPD changes. 5. Colonic diverticulosis without evidence for acute diverticulitis. [facility], , 02/06/2024 4:36 PM
== END | disposition home or self-care (01) ==
LOC: RADCTMAIN 12:19
PROVIDERS: ATTEND Urology
DX: C66.2 Malignant neoplasm of left ureter (principal); N28.1 Cyst of kidney, acquired; J44.9 Chronic obstructive pulmonary disease, unspecified; N20.0 Calculus of kidney; K57.30 Diverticulosis of large intestine without perforation or abscess without bleeding; Z98.82 Breast implant status; I70.0 Atherosclerosis of aorta
CPT/HCPCS: 82565; 84520; 74178; 36415; 74400; Q9967